=== PATIENT | male | born 1980 | race Caucasian/White ===

== ENCOUNTER 2017-07-06 22:48 | Emergency (ER) | payer MEDICAID ==
[~2017-07-06] VITALS: Ht 193 cm; Wt 110.9 kg
[2017-07-06] MEDS ORDERED: LORazepam 2 mg/ml vial IM ONE (23:45)
[2017-07-06] MEDS ORDERED: cyclobenzaprine 10mg tablet PO ONE (23:45)
[2017-07-06] MEDS ORDERED: CYCL-1 PO (23:51)
[2017-07-06] MEDS ORDERED: HYDR-565 PO (23:51)
[2017-07-07 00:15] VITALS: BP 128/82
== END 2017-07-07 00:16 | disposition home or self-care (01) ==
LOC: ER 22:49
DX: S39.012A Strain of muscle, fascia and tendon of lower back, initial encounter (principal); M62.830 Muscle spasm of back; Z88.8 Allergy status to other drugs, medicaments and biological substances; Z79.899 Other long term (current) drug therapy; X50.9XXA Other and unspecified overexertion or strenuous movements or postures, initial encounter; Y93.89 Activity, other specified; Y92.89 Other specified places as the place of occurrence of the external cause; Y99.0 Civilian activity done for income or pay
CPT/HCPCS: 72040; 72074; 72100; 96372; 99284; J2060

== ENCOUNTER 2019-11-04 01:11 | Emergency (ER) | payer MEDICAID, OTHER ==
[~2019-11-04] VITALS: Ht 188 cm; Wt 86.4 kg
[~2019-11-04 01:11] MED LIST: CYCL-1 PO
--- NOTE | 2019-11-04 02:11 | NUR ---
TOOK HIM FROM ROOM 3 TO ROOM 16. I HAD THE GREEN SCRUBS FOR HIM TO CHANGE INTO. HE WHIPPED OFF HIS PANTS AND PUT ON HIS BOTTOMS. I HAD INSTRUCTED HIM TO TAKE OFF HIS UNDERWEAR PRIOR TO HIM DOING THIS. HE REFUSED. "I DON'T HAVE TO DO NOTHING" I TOLD HIM THAT "NO, REALLY, THEY DO NEED TO COME OFF BECAUSE WE ARE HERE TO KEEP YOU SAFE FROM HARM, AND THEY HAVE ELASTIC IN THEM." HE UNDERSTOOD AND ASKED TO GO TO THE BATHROOM. I WENT INTO THE BR WITH HIM. HE DIDN'T WANT ME TOO. HE DID TAKE OFF THE UNDERWEAR BUT NOW WONT COME OUT OF THE BR. SECURITY SUMMONED.
[2019-11-04] MEDS ORDERED: LORazepam 1 MG tablet PO STA (02:37)
[2019-11-04] MEDS ORDERED: ondansetron 4mg rapidly disintigrating tab PO STA (02:37)
[2019-11-04 02:44] LABS: EOSINOPHILS # (AUTO) 0.2 X10'3 (0-0.9); EOSINOPHILS % (AUTO) 4.3 % (0-6); HEMATOCRIT 48.4 % (42.0-52.0); HEMOGLOBIN 17.1 g/dl (14.0-17.9); LYMPHOCYTES # (AUTO) 0.9 X10'3 (1.1-4.8); LYMPHOCYTES % (AUTO) 25.7 % (21-51); MEAN CORPUSCULAR HEMOGLOBIN 31.2 PG (27.0-31.0); MEAN CORPUSCULAR HGB CONC 35.3 g/dL (33.0-36.5); MEAN CORPUSCULAR VOLUME 88.3 FL (78-98); MEAN PLATELET VOLUME 8.4 FL (7.4-10.4); MONOCYTES # (AUTO) 0.4 X10'3 (0-0.9); MONOCYTES % (AUTO) 11.8 % (2-12); NEUTROPHILS # (AUTO) 2.1 X10'3 (1.8-7.7); NEUTROPHILS % (AUTO) 57.2 % (42-75); PLATELET COUNT 139 X10'3 (140-440); RED BLOOD COUNT 5.48 X10'6 (4.70-6.10); RED CELL DISTRIBUTION WIDTH 12.7 % (11.5-14.5); WHITE BLOOD COUNT 3.6 X10'3 (4.5-11.0)
[2019-11-04] MEDS ORDERED: nicotine 21mg patch - 24 hr TD STA (02:46)
--- NOTE | 2019-11-04 02:53 | NUR ---
GOT HIM ALL TUCKED IN.
[2019-11-04 03:00] LABS: ALANINE AMINOTRANSFERASE 33 U/L (12-78); ALBUMIN 4.4 G/DL (3.4-5.0); ALBUMIN/GLOBULIN RATIO 1.3 (1.1-1.5); ALKALINE PHOSPHATASE 88 IU/L (46-116); ANION GAP 4 (8-16); ASPARTATE AMINO TRANSFERASE 23 U/L (10-37); BILIRUBIN,TOTAL 0.5 MG/DL (0.1-1.0); BLOOD UREA NITROGEN 12 MG/DL (7-18); BUN/CREATININE RATIO 9.9 (5.4-32.0); CALCIUM 9.2 MG/DL (8.5-10.1); CHLORIDE 102 MMOL/L (99-107); CREATININE 1.21 MG/DL (0.60-1.10); GLUCOSE 99 MG/DL (70-104); POTASSIUM 3.9 MMOL/L (3.5-5.1); SODIUM 138 MMOL/L (135-145); TOTAL CARBON DIOXIDE 31.9 MMOL/L (24-32); TOTAL PROTEIN 7.7 G/DL (6.4-8.2); eGFR 67 ML/MIN
[2019-11-04 03:14] LABS: ACETAMINOPHEN < 2.0 UG/ML (10-30); ETHANOL < 0.010 GM/DL (0.0-0.010)
--- NOTE | 2019-11-04 03:52 | NUR ---
HE AWOKE AND WENT TO THE SINK AND DRANK SOME WATER.
--- NOTE | 2019-11-04 10:16 | NUR ---
Pt ambulatory to the restroom. Pt attempted to walk out of the room. Pt made statements about needing to go because he missed the methadone clinic today. Explained to the patient that he is not able to leave. He asked "what are you going to do if I leave? Are you going to tackle me? Am I on a hold?" Staff explained to the patient that he is on a 1798 hold and needs to be cleared from [facility]. Sandee phoned lab and asked them to run his UA as quickly as possible so we can obtain a disposition from [facility].
[2019-11-04 10:22] LABS: CLARITY,URINE CLEAR (Clear); COLOR,URINE STRAW (Yellow); GLUCOSE, URINE NEGATIVE (Neg); KETONES,URINE NEGATIVE (Neg); LEUKOCYTE ESTERASE ,URINE NEGATIVE (Neg); NITRITES, URINE NEGATIVE (Neg); OCCULT BLOOD,URINE NEGATIVE (Neg); PROTEIN,URINE NEGATIVE (Neg); UROBILINOGEN,URINE 0.2 E.U/dL (0.2-1.0)
[2019-11-04 10:29] LABS: UA COLLECTION TYPE CLN CATCH MIDSTREAM
[2019-11-04 10:34] LABS: URINE AMPHETAMINE SCREEN POSITIVE (Neg); URINE BARBITUATE SCREEN NEGATIVE (Neg); URINE BENZODIAZEPINES SCREEN NEGATIVE (Neg); URINE CANNABINOID SCREEN NEGATIVE (Neg); URINE COCAINE SCREEN NEGATIVE (Neg); URINE METHADONE SCREEN POSITIVE (Neg); URINE OPIATE SCREEN POSITIVE (Neg); URINE PHENCYCLIDINE SCREEN NEGATIVE (Neg)
[2019-11-04 11:36] VITALS: BP 134/64
== END 2019-11-04 11:51 | disposition home or self-care (01) ==
LOC: ER 01:12
DX: R44.0 Auditory hallucinations (principal); R45.851 Suicidal ideations; R11.0 Nausea; F15.90 Other stimulant use, unspecified, uncomplicated; F11.90 Opioid use, unspecified, uncomplicated; Z88.8 Allergy status to other drugs, medicaments and biological substances; Z79.899 Other long term (current) drug therapy; Z59.0 Homelessness
CPT/HCPCS: 36415; 80053; 80305; 80320; 80329; 81003; 84443; 85025; 99284

== ENCOUNTER 2019-11-23 11:02 | Emergency (ER) | payer SELFPAY ==
[~2019-11-23] VITALS: Ht 188 cm; Wt 85.0 kg
[2019-11-23 11:20] VITALS: BP 103/69
[2019-11-23] MEDS ORDERED: methadone 10mg tablet PO ONE (12:15)
[2019-11-23 12:43] LABS: BASOPHILS % (AUTO) 0.8 % (0-1); EOSINOPHILS # (AUTO) 0.1 X10'3 (0-0.9); EOSINOPHILS % (AUTO) 1.8 % (0-6); HEMATOCRIT 47.9 % (42.0-52.0); HEMOGLOBIN 16.3 g/dl (14.0-17.9); LYMPHOCYTES # (AUTO) 1.2 X10'3 (1.1-4.8); LYMPHOCYTES % (AUTO) 39.8 % (21-51); MEAN CORPUSCULAR HEMOGLOBIN 30.5 PG (27.0-31.0); MEAN CORPUSCULAR HGB CONC 34.1 g/dL (33.0-36.5); MEAN CORPUSCULAR VOLUME 89.5 FL (78-98); MEAN PLATELET VOLUME 7.8 FL (7.4-10.4); MONOCYTES # (AUTO) 0.4 X10'3 (0-0.9); MONOCYTES % (AUTO) 14.9 % (2-12); NEUTROPHILS # (AUTO) 1.3 X10'3 (1.8-7.7); NEUTROPHILS % (AUTO) 42.7 % (42-75); PLATELET COUNT 197 X10'3 (140-440); RED BLOOD COUNT 5.35 X10'6 (4.70-6.10); RED CELL DISTRIBUTION WIDTH 13.3 % (11.5-14.5)
[2019-11-23 12:53] LABS: ALANINE AMINOTRANSFERASE 24 U/L (12-78); ALBUMIN 4.2 G/DL (3.4-5.0); ALBUMIN/GLOBULIN RATIO 1.3 (1.1-1.5); ALKALINE PHOSPHATASE 85 IU/L (46-116); ANION GAP 9 (8-16); ASPARTATE AMINO TRANSFERASE 16 U/L (10-37); BLOOD UREA NITROGEN 10 MG/DL (7-18); CALCIUM 9.5 MG/DL (8.5-10.1); CHLORIDE 106 MMOL/L (99-107); CREATININE 1.25 MG/DL (0.60-1.10); GLUCOSE 91 MG/DL (70-104); SODIUM 143 MMOL/L (135-145); TOTAL CARBON DIOXIDE 28.3 MMOL/L (24-32); TOTAL PROTEIN 7.4 G/DL (6.4-8.2); eGFR 64 ML/MIN
[2019-11-23 13:12] LABS: PLATELET ESTIMATE NORMAL; TOTAL CELLS COUNTED 100
[2019-11-23 13:19] LABS: ETHANOL < 0.010 GM/DL (0.0-0.010)
[2019-11-23] MEDS ORDERED: hydrocortisone 1% cream 28gm TP SCH (13:45)
[2019-11-23] MEDS ORDERED: hydrocortisone 1% cream 28gm TP ONE (13:45)
[2019-11-23 14:39] LABS: CLARITY,URINE CLEAR (Clear); COLOR,URINE YELLOW (Yellow); GLUCOSE, URINE NEGATIVE (Neg); KETONES,URINE NEGATIVE (Neg); LEUKOCYTE ESTERASE ,URINE NEGATIVE (Neg); NITRITES, URINE NEGATIVE (Neg); OCCULT BLOOD,URINE NEGATIVE (Neg); PROTEIN,URINE NEGATIVE (Neg); UA COLLECTION TYPE CLN CATCH MIDSTREAM; UROBILINOGEN,URINE 0.2 E.U/dL (0.2-1.0)
[2019-11-23 14:40] LABS: URINE AMPHETAMINE SCREEN POSITIVE (Neg); URINE BARBITUATE SCREEN NEGATIVE (Neg); URINE BENZODIAZEPINES SCREEN POSITIVE (Neg); URINE CANNABINOID SCREEN POSITIVE (Neg); URINE COCAINE SCREEN NEGATIVE (Neg); URINE METHADONE SCREEN POSITIVE (Neg); URINE OPIATE SCREEN POSITIVE (Neg); URINE PHENCYCLIDINE SCREEN NEGATIVE (Neg)
[2019-11-23] MEDS ORDERED: GABA600T13 PO (15:05)
[2019-11-23] MEDS ORDERED: FAMO40TA73 PO (15:05)
[2019-11-23] MEDS ORDERED: METH-603 PO (15:05)
[2019-11-23] MEDS ORDERED: nicotine 7mg patch - 24hr TD ONE (15:15)
--- NOTE | 2019-11-23 15:16 | NUR ---
relieving RN for break, pt smoke 1/2 pack a day, pt asking for nicotine patch, Dr Gordon aware and gave verbal order for nicotine 7mg patch x1 now
--- NOTE | 2019-11-23 19:13 | NUR ---
pt jumped out of bed and stated "I feel better now can I go?" - advised pt that he was not able to leave and that he was on a hold. He then asked if he could talk to someone from psych. I advised him that they have been notified that he is here and that he will be seen either tonight or tomorrow morning.
--- NOTE | 2019-11-23 19:39 | NUR ---
packet being prepared and will be sent [facility]
--- NOTE | 2019-11-23 20:03 | NUR ---
relieving RN for break, pt is sleeping quietly on gurney,
--- NOTE | 2019-11-23 20:53 | NUR ---
pt is taking with mental health worker
[2019-11-23] MEDS ORDERED: QUET25TA PO (21:19)
--- NOTE | 2019-11-23 21:34 | NUR ---
pt was evaluated by mental health worker and is ready for discharge
== END 2019-11-23 21:50 ==
LOC: ER 11:02
DX: F41.9 Anxiety disorder, unspecified (principal); F32.9 Major depressive disorder, single episode, unspecified; R45.851 Suicidal ideations; F11.10 Opioid abuse, uncomplicated; F15.90 Other stimulant use, unspecified, uncomplicated; F11.90 Opioid use, unspecified, uncomplicated; Z88.8 Allergy status to other drugs, medicaments and biological substances; Z79.899 Other long term (current) drug therapy
CPT/HCPCS: 36415; 80053; 80305; 80320; 81003; 85025; 99285

== ENCOUNTER 2020-01-14 13:08 | Emergency (ER) | payer OTHER ==
[~2020-01-14] VITALS: Ht 188 cm; Wt 81.8 kg
[~2020-01-14 13:08] MED LIST changes: -CYCL-1 PO; +FAMO40TA73 PO; +GABA600T13 PO; +METH-603 PO; +QUET25TA PO
[2020-01-14 15:09] LABS: BASOPHILS % (AUTO) 0.8 % (0-1); EOSINOPHILS # (AUTO) 0.1 X10'3 (0-0.9); HEMATOCRIT 43.9 % (42.0-52.0); HEMOGLOBIN 15.3 g/dl (14.0-17.9); LYMPHOCYTES # (AUTO) 1.2 X10'3 (1.1-4.8); LYMPHOCYTES % (AUTO) 58.3 % (21-51); MEAN CORPUSCULAR HEMOGLOBIN 32.2 PG (27.0-31.0); MEAN CORPUSCULAR HGB CONC 34.8 g/dL (33.0-36.5); MEAN CORPUSCULAR VOLUME 92.4 FL (78-98); MEAN PLATELET VOLUME 8.5 FL (7.4-10.4); MONOCYTES # (AUTO) 0.4 X10'3 (0-0.9); MONOCYTES % (AUTO) 21.2 % (2-12); NEUTROPHILS # (AUTO) 0.3 X10'3 (1.8-7.7); NEUTROPHILS % (AUTO) 12.7 % (42-75); PLATELET COUNT 150 X10'3 (140-440); RED BLOOD COUNT 4.76 X10'6 (4.70-6.10); RED CELL DISTRIBUTION WIDTH 12.8 % (11.5-14.5)
[2020-01-14 15:36] LABS: PLATELET ESTIMATE NORMAL; TOTAL CELLS COUNTED 100
[2020-01-14 15:51] LABS: ALANINE AMINOTRANSFERASE 29 U/L (12-78); ALBUMIN 3.9 G/DL (3.4-5.0); ALBUMIN/GLOBULIN RATIO 1.3 (1.1-1.5); ALKALINE PHOSPHATASE 102 IU/L (46-116); ANION GAP 6 (8-16); ASPARTATE AMINO TRANSFERASE 18 U/L (10-37); BILIRUBIN,TOTAL 0.8 MG/DL (0.1-1.0); BLOOD UREA NITROGEN 10 MG/DL (7-18); BUN/CREATININE RATIO 8.5 (5.4-32.0); CALCIUM 8.6 MG/DL (8.5-10.1); CHLORIDE 102 MMOL/L (99-107); CREATININE 1.17 MG/DL (0.60-1.10); GLUCOSE 77 MG/DL (70-104); POTASSIUM 3.9 MMOL/L (3.5-5.1); SODIUM 137 MMOL/L (135-145); TOTAL CARBON DIOXIDE 29.4 MMOL/L (24-32); eGFR 69 ML/MIN
[2020-01-14 16:00] LABS: ETHANOL < 0.010 GM/DL (0.0-0.010)
[2020-01-14 17:06] LABS: CLARITY,URINE CLEAR (Clear); COLOR,URINE YELLOW (Yellow); GLUCOSE, URINE NEGATIVE (Neg); KETONES,URINE NEGATIVE (Neg); LEUKOCYTE ESTERASE ,URINE NEGATIVE (Neg); NITRITES, URINE NEGATIVE (Neg); OCCULT BLOOD,URINE NEGATIVE (Neg); PROTEIN,URINE 30 mg/dl (Neg)
[2020-01-14 17:09] LABS: RBC,URINE NONE SEEN /HPF (0-2); UA COLLECTION TYPE NON-SPECIFIED
[2020-01-14 17:10] LABS: BACTERIA,URINE NONE SEEN /HPF (Neg); MUCUS STRANDS FEW /LPF (Neg); SQUAMOUS EPITHELIAL CELL,UR FEW /LPF (FEW); WBC,URINE 0-4 /HPF (0-4)
[2020-01-14 17:14] LABS: URINE AMPHETAMINE SCREEN POSITIVE (Neg); URINE BARBITUATE SCREEN NEGATIVE (Neg); URINE BENZODIAZEPINES SCREEN NEGATIVE (Neg); URINE CANNABINOID SCREEN POSITIVE (Neg); URINE COCAINE SCREEN NEGATIVE (Neg); URINE METHADONE SCREEN POSITIVE (Neg); URINE OPIATE SCREEN POSITIVE (Neg); URINE PHENCYCLIDINE SCREEN NEGATIVE (Neg)
--- NOTE | 2020-01-14 17:20 | NUR ---
PACKET FAXED [facility]
--- NOTE | 2020-01-14 22:25 | NUR ---
Pt has been sleeping since shift change. Pt uncooperative when awakened VS stable, resp even no medications ordered pt allowed to sleep.
--- NOTE | 2020-01-14 23:50 | NUR ---
Pt continues to sleep, resp even and unlabored, repositions self.
--- NOTE | 2020-01-15 03:20 | NUR ---
Pt sleeping resp even and unlabored
--- NOTE | 2020-01-15 07:00 | NUR ---
Patient is lying on his right side in no apparent distress. Patient RR is 16 and skin is pink, warm and dry. Patient is resting with eyes closed.
--- NOTE | 2020-01-15 09:00 | NUR ---
Patient is restuing on back side, regular breathing observed, will continue to monitor.
--- NOTE | 2020-01-15 09:07 | NUR ---
Breaking primary RN, pt is awake and cooperative with staff, calm, will continue to monitor
[2020-01-15] MEDS: famotidine 10mg tablet PO SCH (09:16)
[2020-01-15] MEDS: gabapentin 300mg capsule PO SCH ×2 (10:05→16:36)
[2020-01-15] MEDS: methadone 10mg tablet PO SCH (10:06)
--- NOTE | 2020-01-15 10:37 | NUR ---
Breaking primary RN, pt is in bed, supine, regular breathing observed, no s/s of agitation observed
--- NOTE | 2020-01-15 13:00 | NUR ---
Patient reports to TIMOTHY Mendoza that he is "feeling agitated" and is hearing voices that are not present. Patient request Seroquel, telephone order obtained by ELIZABETH Morrissey.
[2020-01-15] MEDS ORDERED: QUEtiapine 25mg tablet PO ONE (13:05)
--- NOTE | 2020-01-15 13:10 | NUR ---
TIMOTHY Mendoza spoke with patient who states "I am not actually on Seroquel, I took myself off 3 years ago." Patient endorses that he hears voices, and that is why is here to get "help and get back on Seroquel."
[2020-01-15] MEDS ORDERED: nicotine 14mg patch - 24hr TD ONE (13:30)
[2020-01-15] MEDS ORDERED: LORazepam 1 MG tablet PO ONE (13:30)
--- NOTE | 2020-01-15 13:35 | NUR ---
Break RN; Pt pacing but cooperative. Pt medicated with 1mg Ativan and 14mg Nicotine Patch on left shoulder.
--- NOTE | 2020-01-15 15:00 | NUR ---
Patient resting in bed, lying on right side. RR is 14, patient does not appear to be in distress.
--- NOTE | 2020-01-15 17:00 | NUR ---
Patient resting in bed, lying on right side. RR is 12, patient does not appear to be in distress.
--- NOTE | 2020-01-15 18:25 | NUR ---
SBAR report given to Tianna Arias RN. All questions answered.
[2020-01-15] MEDS: hydrOXYzine 25 MG tablet PO PRN (18:59)
[2020-01-16] MEDS ORDERED: LORazepam 1 MG tablet PO ONE ×2 (00:20→20:00)
[2020-01-16] MEDS: gabapentin 300mg capsule PO SCH ×3 (00:51→16:33)
--- NOTE | 2020-01-16 01:17 | NUR ---
Pt awake at this time, used the restroom and returned to bed. Given new blankets. He asked about getting admitted to a psych facility, education on process and to expect to hear from the county worker in the day time.
--- NOTE | 2020-01-16 06:33 | NUR ---
pt is pacing around the unit
[2020-01-16] MEDS: methadone 10mg tablet PO SCH (07:13)
[2020-01-16] MEDS: famotidine 10mg tablet PO SCH (07:14)
[2020-01-16] MEDS: quetiapine 100mg tablet PO SCH ×2 (07:14→20:07)
--- NOTE | 2020-01-16 07:30 | NUR ---
PT IS PACING AROUND
--- NOTE | 2020-01-16 08:30 | NUR ---
PT IS PACING AROUND AND THEN SAT DOWN TO EAT BREAKFAST
--- NOTE | 2020-01-16 09:30 | NUR ---
PT IS RESTING
--- NOTE | 2020-01-16 10:30 | NUR ---
PT IS SLEEPING. NO CONCERNS AT THIS TIME
--- NOTE | 2020-01-16 11:30 | NUR ---
PT IS SLEEPING. NO CONCERNS AT THIS TIME
--- NOTE | 2020-01-16 12:30 | NUR ---
PT IS SLEEPING. NO CONCERNS AT THIS TIME
--- NOTE | 2020-01-16 13:30 | NUR ---
PT IS SLEEPING. NO CONCERNS AT THIS TIME
--- NOTE | 2020-01-16 14:30 | NUR ---
PT IS SLEEPING. NO CONCERNS AT THIS TIME
[2020-01-16] MEDS ORDERED: TESTOSTERONE CYPIONATE 200 MG/ML VIAL IM SCH (15:30)
--- NOTE | 2020-01-16 15:46 | NUR ---
PT IS AWAKE. TALKING ON THE PHONE
--- NOTE | 2020-01-16 16:00 | NUR ---
PT IS RESTING
[2020-01-16] MEDS: hydrOXYzine 25 MG tablet PO PRN (16:34)
--- NOTE | 2020-01-16 17:00 | NUR ---
PT IS RESTING
--- NOTE | 2020-01-16 18:18 | NUR ---
PT IS RESTING
--- NOTE | 2020-01-16 18:42 | NUR ---
PT IS CALM AND ON HIS BED SITTING CROSS LEGGED. HE IS CALM. RECEIVED REPORT FROM DAY SHIFTR RNPARAS. SHE REPORTS HE CAN BE DEMANDING AND IRRITABLE. 5150 WRITTEN BY [facility]. PT AWAITING PLACEMENT. PT UP TO NURSES STATION TO REQUEST ADTL FOOD AND A PHONE. GIVEN SOME SNACKS. CURRENTLY TALKING CALMLY WITH SOMEONE ON THE PHONE.
--- NOTE | 2020-01-16 19:19 | NUR ---
PT STILL ON THE PHONE AND IS QUITE AND SEEMS APPROPRIATE IN HIS CONVERSATION . HE REQUESTS HER TO VISIT AND IS UPDATED ON POLICIES, THEN ASKED IF SHE CAN BRING HIS PHONE, AND AGAIN, UPDATED ON OUR STRICT POLICIES. PT WAS CALM WHEN RECEIVING THIS INFORMATION AND RELAYED IT TO THE WOMAN ON THE PHONE.
--- NOTE | 2020-01-16 19:56 | NUR ---
PT [facility] AND THAT HE HAS TAKEN 2 DOSES OF THE ATARAX, PRN, AND IT "DOES NOT HELP AT ALL...I TRIED IT BEACUSE YOU GUYS WANTED ME TO, BUT IT HAS NOT HELPED IN THE PAST". aLSO IN NEED OF ANOTHER NICOTINE PATCH. ELIZABETH BURT UPDATED AND VERBAL RECEIVED FR ATIVAN AND NICOTINE PATCH.
[2020-01-16] MEDS ORDERED: nicotine 21mg patch - 24 hr TD ONE (20:00)
--- NOTE | 2020-01-16 20:28 | NUR ---
PT GIVEN ATIVAN AND SEROQUEL AND NEW NICOTINE PATCH. PT IS COOPERATIVE. EXPLAINED THE PROCESS OF MENTAL HEALTH HOLD AND THAT WE ARE WAITING FOR ACCEPTANCE FOR HIM TO INPT PSYCH. STATES ONCE BEFORE HE WAS IN A "BAD PLACE LIKE THIS" AND DID INIPT PSYCH "[facility]...IT WAS A REALLY BEAUTIFUL PLACE AND IT HELPED ALOT". STATES HE DID ATTEMPT TO KILL HIMSELF 4 DAYS AGO BY INJECTING HEROIN WITH THE INTENT OF KILLING HIMSELF. STATES "I KNOW IM JOKING AROUND RIGHT NOW WITH YOU, IT HELPS ME COPE, BUT LAURA NEVER BEEN THIS BAD...I DONT KNOW WHAT TO DO OR HOW TO EXPLAIN THIS". STATES THAT HE WAS TALKING TO HIS GIRLFRIEND EARLIER ON THE PHONE AND THAT SHE IS SUPPORTIVE. HE IS HOPEFUL OF AN UPDATED ON STATUS FROM [facility] SOON. I REPORTED THAT I WILL LEAVE THEM A NOTE ON THEIR DOOR TO REQUEST THIS. PT IS POLITE AND GRATEFUL FOR HIS CARE. MOVED TO BED 25 (THE LIGHTS IN BED 25 ARE BRIGHT).
--- NOTE | 2020-01-16 20:42 | NUR ---
pt reports he has chronic join pain from rhumatoid arthritis, states he is "always in pain" this is why he takes gabapentin and methadone. states he has never used iv drugs or heroin until his attempt to kill himself a few days ago.
--- NOTE | 2020-01-16 23:24 | NUR ---
PT REMAINS ASLEEP. RR 12 AND UNLABORED. BLANKETS COVERING TO HIS SHOUDERS AND LYING ON HIS BACK. SITTER AND RN WITHIN VIEW OF PT AAT.
--- NOTE | 2020-01-17 00:27 | NUR ---
PT REMAINS ASLEEP, LYING ON HIS BACK.
--- NOTE | 2020-01-17 01:16 | NUR ---
BREAKING PRIMARY RN, PT ASLEEP, RR EVEN AND UNLABORED, WILL CONTINUE TO MONITOR
--- NOTE | 2020-01-17 02:11 | NUR ---
PT REMAINS ASLEEP, LYING ON HIS BACK WITH BLANKETS COVERING TO HIS WAIST. RR 14 AND UNLABORED. SITTER AND RN WITHIN VIEW OF PT AAT.
--- NOTE | 2020-01-17 04:19 | NUR ---
PT UP TO BR TO VOID. AMBULATING WITH STEADY GAIT. REQUESTED CRANBERRY JUICE AND RETURNED TO HIS BED. GIVEN JUICE.
--- NOTE | 2020-01-17 06:35 | NUR ---
Received report from Fay AGUIRRE, [facility].
--- NOTE | 2020-01-17 07:45 | NUR ---
Patient resting with eyes closed, will continue to monitor.
[2020-01-17] MEDS: quetiapine 100mg tablet PO SCH ×3 (08:00→19:20)
[2020-01-17] MEDS: famotidine 10mg tablet PO SCH (08:20)
[2020-01-17] MEDS: gabapentin 300mg capsule PO SCH ×3 (08:21→17:42)
[2020-01-17] MEDS: methadone 10mg tablet PO SCH (08:25)
--- NOTE | 2020-01-17 08:30 | NUR ---
Took AM meds well, held seroquel r/t patient needing to be awake/alert to make phone calls, denies hallucinations at this time. Discussed why he's here and offered hope to his situation.
[2020-01-17] MEDS ORDERED: LORazepam 1 MG tablet PO ONE (09:10)
[2020-01-17] MEDS ORDERED: bisacodyl 5mg tablet.DR PO ONE (09:10)
--- NOTE | 2020-01-17 09:23 | NUR ---
Spoke to MD poole: patient's statement of not having had BM in last 6 days and patient having anxiety, received orders for Ativan and Bisacodyl. Administered them at this time. Patient on the phone trying to figure out his affairs with work etc. Patient states he's not hearing voices at this time. Patient refused Seroquel this am r/t needing to be awake for phone calls to be made and the seroquel makes him sleep. Held Seroquel, discussed with patient that if he begins to hallucinate again that we will give the seroquel.
--- NOTE | 2020-01-17 11:39 | NUR ---
Received call for nurse to nurse from Jessy from [facility], requested a 5150 to be renewed.
[2020-01-17] MEDS ORDERED: nicotine 21mg patch - 24 hr TD SCH (12:35)
--- NOTE | 2020-01-17 14:16 | NUR ---
pt appear sleeping at this time .no distress noted will cont to monitor rr tammie and unlabored,primary nurse on break.
--- NOTE | 2020-01-17 15:08 | NUR ---
Patient sleeping still, no s/sx of distress noted. Will cont. to monitor.
--- NOTE | 2020-01-17 16:00 | NUR ---
Patient in deep sleep, noted rise and fall of chest, no s/sx of distress. Will cont. to monitor.
--- NOTE | 2020-01-17 17:39 | NUR ---
Patient remains asleep, will wake up to give 1600 medication.
[2020-01-17 17:46] VITALS: BP 111/59
--- NOTE | 2020-01-17 19:00 | NUR ---
pt getting ready to leave to [facility]
--- NOTE | 2020-01-17 19:14 | NUR ---
received a bottle of pt's methadone (1/2 full of liquid). Will send with patient for transfer
== END 2020-01-17 20:34 ==
LOC: ER 13:09
DX: F32.9 Major depressive disorder, single episode, unspecified (principal); R45.851 Suicidal ideations; R44.0 Auditory hallucinations; D72.819 Decreased white blood cell count, unspecified; F15.90 Other stimulant use, unspecified, uncomplicated; F11.90 Opioid use, unspecified, uncomplicated; Z88.1 Allergy status to other antibiotic agents; Z79.899 Other long term (current) drug therapy
CPT/HCPCS: 36415; 80053; 80305; 80320; 81001; 84443; 85025; 96372; 99285; Q0177

== ENCOUNTER 2020-02-04 23:20 | Emergency (ER) | payer OTHER ==
[~2020-02-04] VITALS: Ht 188 cm; Wt 90.9 kg
[~2020-02-04 23:20] MED LIST changes: -QUET25TA PO
[2020-02-04] MEDS ORDERED: normal saline 1000ML IV soln IVB ONE ×2 (23:55)
[2020-02-04] MEDS ORDERED: ondansetron/PF 4mg/2ml inj IV ONE (23:55)
[2020-02-04] MEDS ORDERED: iohexol 300mg/ml 100ml inj. ONE (23:59)
[2020-02-05] MEDS: morphine 4 MG/ML inj SYRINge IV PRN ×2 (00:05→00:50)
[2020-02-05 00:23] LABS: LYMPHOCYTES # (AUTO) 1.3 X10'3 (1.1-4.8); MONOCYTES # (AUTO) 0.7 X10'3 (0-0.9); NEUTROPHILS # (AUTO) 4.7 X10'3 (1.8-7.7); RED CELL DISTRIBUTION WIDTH 13.1 % (11.5-14.5); WHITE BLOOD COUNT 6.8 X10'3 (4.5-11.0)
[2020-02-05 00:25] LABS: BASOPHILS % (AUTO) 0.5 % (0-1); EOSINOPHILS % (AUTO) 0.3 % (0-6); HEMATOCRIT 45.1 % (42.0-52.0); HEMOGLOBIN 15.7 g/dl (14.0-17.9); LYMPHOCYTES % (AUTO) 19.7 % (21-51); MEAN CORPUSCULAR HGB CONC 34.8 g/dL (33.0-36.5); MEAN PLATELET VOLUME 7.7 FL (7.4-10.4); MONOCYTES % (AUTO) 10.5 % (2-12); PLATELET COUNT 232 X10'3 (140-440)
[2020-02-05 00:34] LABS: PARTIAL THROMBOPLASTIN TIME 28 SECONDS (22-32)
[2020-02-05 00:37] LABS: ALANINE AMINOTRANSFERASE 103 U/L (12-78); ALBUMIN 4.6 G/DL (3.4-5.0); ALBUMIN/GLOBULIN RATIO 1.2 (1.1-1.5); ALKALINE PHOSPHATASE 94 IU/L (46-116); ANION GAP 12 (8-16); ASPARTATE AMINO TRANSFERASE 35 U/L (10-37); BILIRUBIN,TOTAL 1.3 MG/DL (0.1-1.0); BLOOD UREA NITROGEN 25 MG/DL (7-18); BUN/CREATININE RATIO 16.8 (5.4-32.0); CALCIUM 9.3 MG/DL (8.5-10.1); CHLORIDE 99 MMOL/L (99-107); CREATININE 1.49 MG/DL (0.60-1.10); ETHANOL < 0.010 GM/DL (0.0-0.010); GLUCOSE 106 MG/DL (70-104); POTASSIUM 3.7 MMOL/L (3.5-5.1); SODIUM 136 MMOL/L (135-145); TOTAL CARBON DIOXIDE 24.6 MMOL/L (24-32); TOTAL PROTEIN 8.4 G/DL (6.4-8.2); eGFR 53 ML/MIN
[2020-02-05 00:52] VITALS: BP 127/75
== END 2020-02-05 01:08 | disposition home or self-care (01) ==
LOC: ER 23:21
DX: S20.211A Contusion of right front wall of thorax, initial encounter (principal); F17.200 Nicotine dependence, unspecified, uncomplicated; F15.90 Other stimulant use, unspecified, uncomplicated; F11.90 Opioid use, unspecified, uncomplicated; F32.9 Major depressive disorder, single episode, unspecified; W19.XXXA Unspecified fall, initial encounter; Y93.89 Activity, other specified; Y92.89 Other specified places as the place of occurrence of the external cause; Y99.8 Other external cause status
CPT/HCPCS: 36415; 70450; 71260; 72125; 74177; 80053; 80320; 85025; 85610; 85730; 96361; 96374; 96376; 99285; J2270; J7030; Q9967

== ENCOUNTER 2020-03-22 19:33 | Emergency (ER) | payer OTHER ==
[~2020-03-22] VITALS: Ht 188 cm; Wt 96.8 kg
[2020-03-22] MEDS ORDERED: LORazepam 1 MG tablet PO ONE (22:25)
[2020-03-22 22:33] LABS: CLARITY,URINE CLEAR (Clear); COLOR,URINE YELLOW (Yellow); GLUCOSE, URINE NEGATIVE (Neg); KETONES,URINE NEGATIVE (Neg); LEUKOCYTE ESTERASE ,URINE NEGATIVE (Neg); NITRITES, URINE NEGATIVE (Neg); OCCULT BLOOD,URINE NEGATIVE (Neg); PROTEIN,URINE NEGATIVE (Neg)
[2020-03-22 22:35] LABS: UA COLLECTION TYPE CLN CATCH MIDSTREAM
[2020-03-22 22:48] LABS: URINE AMPHETAMINE SCREEN NEGATIVE (Neg); URINE BARBITUATE SCREEN NEGATIVE (Neg); URINE BENZODIAZEPINES SCREEN NEGATIVE (Neg); URINE CANNABINOID SCREEN POSITIVE (Neg); URINE COCAINE SCREEN NEGATIVE (Neg); URINE METHADONE SCREEN NEGATIVE (Neg); URINE OPIATE SCREEN POSITIVE (Neg); URINE PHENCYCLIDINE SCREEN NEGATIVE (Neg)
[2020-03-22 22:54] LABS: ALANINE AMINOTRANSFERASE 25 U/L (12-78); ALBUMIN 4.1 G/DL (3.4-5.0); ALBUMIN/GLOBULIN RATIO 1.3 (1.1-1.5); ALKALINE PHOSPHATASE 103 IU/L (46-116); ANION GAP 5 (8-16); ASPARTATE AMINO TRANSFERASE 20 U/L (10-37); BILIRUBIN,TOTAL 0.4 MG/DL (0.1-1.0); BLOOD UREA NITROGEN 17 MG/DL (7-18); BUN/CREATININE RATIO 14.3 (5.4-32.0); CHLORIDE 103 MMOL/L (99-107); CREATININE 1.19 MG/DL (0.60-1.10); GLUCOSE 87 MG/DL (70-104); POTASSIUM 4.6 MMOL/L (3.5-5.1); SODIUM 139 MMOL/L (135-145); TOTAL CARBON DIOXIDE 30.6 MMOL/L (24-32); TOTAL PROTEIN 7.3 G/DL (6.4-8.2); eGFR 68 ML/MIN
[2020-03-22 23:00] LABS: ETHANOL < 0.010 GM/DL (0.0-0.010)
[2020-03-22 23:10] LABS: BASOPHILS % (AUTO) 0.7 % (0-1); EOSINOPHILS # (AUTO) 0.3 X10'3 (0-0.9); EOSINOPHILS % (AUTO) 10.8 % (0-6); HEMATOCRIT 43.3 % (42.0-52.0); LYMPHOCYTES # (AUTO) 1.7 X10'3 (1.1-4.8); LYMPHOCYTES % (AUTO) 56.7 % (21-51); MEAN CORPUSCULAR HEMOGLOBIN 31.3 PG (27.0-31.0); MEAN CORPUSCULAR HGB CONC 34.6 g/dL (33.0-36.5); MEAN CORPUSCULAR VOLUME 90.7 FL (78-98); MEAN PLATELET VOLUME 8.6 FL (7.4-10.4); MONOCYTES # (AUTO) 0.7 X10'3 (0-0.9); MONOCYTES % (AUTO) 22.3 % (2-12); NEUTROPHILS # (AUTO) 0.3 X10'3 (1.8-7.7); NEUTROPHILS % (AUTO) 9.5 % (42-75); PLATELET COUNT 173 X10'3 (140-440); RED BLOOD COUNT 4.77 X10'6 (4.70-6.10); RED CELL DISTRIBUTION WIDTH 12.8 % (11.5-14.5); WHITE BLOOD COUNT 2.9 X10'3 (4.5-11.0)
[2020-03-22] MEDS ORDERED: ONDA-103 PO (23:53)
[2020-03-22] MEDS ORDERED: ESCI10TA61 PO (23:53)
[2020-03-22] MEDS ORDERED: QUET-1 PO (23:53)
[2020-03-23] MEDS ORDERED: ibuprofen tablet 400 MG TABLET PO ONE
--- NOTE | 2020-03-23 00:12 | NUR ---
Patient ambulated over from main ER to ER Overflow bed 21 with RN. Patient alert and oriented and appears to be cooperative. No apparent s/s of distress noted. Patient requesting a dose of his night medications - will ask provider for dose of Seroquel.
--- NOTE | 2020-03-23 00:25 | NUR ---
Packet faxed to [facility]
--- NOTE | 2020-03-23 01:01 | NUR ---
Patient now appears to be resting comfortably in bed. No apparent s/s of distress noted. Awaiting MD to address pt's medication reconciliation.
[2020-03-23 01:55] LABS: PLATELET ESTIMATE NORMAL; TOTAL CELLS COUNTED 100
--- NOTE | 2020-03-23 02:30 | NUR ---
Patient appears to be resting comfortably in bed. No apparent s/s of distress noted
--- NOTE | 2020-03-23 03:12 | NUR ---
Patient appears to be resting comfortably in bed. No apparent s/s of distress noted
[2020-03-23] MEDS ORDERED: LORazepam 1 MG tablet PO ONE (03:20)
--- NOTE | 2020-03-23 03:23 | NUR ---
Patient woke up and asked nurse if he could get any medication to help him calm down. Patient stated he Ativan earlier and it helped. Spoke with provider and received another one time dose of PO Ativan
--- NOTE | 2020-03-23 04:10 | NUR ---
Patient appears to be resting comfortably in bed. No apparent s/s of distress noted
--- NOTE | 2020-03-23 05:05 | NUR ---
Patient appears to be resting comfortably in bed. No apparent s/s of distress noted
[2020-03-23 05:40] VITALS: BP 111/69
--- NOTE | 2020-03-23 06:02 | NUR ---
Patient appears to be resting comfortably in bed. No apparent s/s of distress noted
--- NOTE | 2020-03-23 06:41 | NUR ---
PT SLEEPING IN POC WITHOUT DISTRESS.
[2020-03-23] MEDS ORDERED: LORazepam 1 MG tablet PO PRN (07:15)
--- NOTE | 2020-03-23 08:34 | NUR ---
PT AWAKE AND EATING BREAKFAST NOW.
--- NOTE | 2020-03-23 08:58 | NUR ---
PT REQUESTING SUBOXONE AND ATIVAN. [facility] AT BEDSIDE. ATIVAN GIVEN SCHEDULED. ADVISED PT REQUESTING SUBOXONE. NO NEW O[facility]ER AT THIS TIME FOR SUBOXONE. PT UPDATED.
--- NOTE | 2020-03-23 09:14 | NUR ---
MARAH TAYLOR, ENGAGED IN PSYCYOSOCIAL ASSESSMENT W/ PT
== END 2020-03-23 10:10 | disposition home or self-care (01) ==
LOC: ER 19:34
DX: R45.851 Suicidal ideations (principal); F32.9 Major depressive disorder, single episode, unspecified; F17.200 Nicotine dependence, unspecified, uncomplicated; F15.90 Other stimulant use, unspecified, uncomplicated; F11.90 Opioid use, unspecified, uncomplicated; Z72.89 Other problems related to lifestyle; Z88.1 Allergy status to other antibiotic agents; Z79.899 Other long term (current) drug therapy
CPT/HCPCS: 36415; 80053; 80305; 80320; 81003; 85007; 85025; 99284

== ENCOUNTER 2020-04-01 00:24 | Emergency (ER) | payer OTHER ==
[~2020-04-01] VITALS: Ht 188 cm; Wt 92.4 kg
[~2020-04-01 00:24] MED LIST changes: +ESCI10TA61 PO; -FAMO40TA73 PO; -METH-603 PO; +ONDA-103 PO; +QUET-1 PO
--- NOTE | 2020-04-01 00:50 | NUR ---
Patient brought back to overflow from triage. Patient is well oriented. Patient complains of extreme depression and anxiety. Panic attacks for a few days. S/I, "I don't want to bash my head into the wall." Patient is scheduled to see Dr. Govea on April 23. Hx: Anxiety disorder, previous drug addiction, heroin use. Patient currently uses Suboxone and Seroquel. Patient states he has been taking Seroquel for two weeks and it makes him have bad thoughts, "like I should kill myself.
[2020-04-01] MEDS ORDERED: nicotine 21mg patch - 24 hr TD ONE (01:15)
[2020-04-01] MEDS ORDERED: ondansetron 4mg rapidly disintigrating tab PO ONE (01:15)
[2020-04-01] MEDS ORDERED: NICOTINE POLACRILEX 2 MG LOZENGE BC PRN (01:35)
[2020-04-01 01:36] LABS: CLARITY,URINE CLEAR (Clear); COLOR,URINE YELLOW (Yellow); GLUCOSE, URINE NEGATIVE (Neg); KETONES,URINE NEGATIVE (Neg); LEUKOCYTE ESTERASE ,URINE NEGATIVE (Neg); NITRITES, URINE NEGATIVE (Neg); OCCULT BLOOD,URINE NEGATIVE (Neg); PH,URINE 7.5 (4.8-8.0); PROTEIN,URINE NEGATIVE (Neg)
[2020-04-01 01:37] LABS: UA COLLECTION TYPE CLN CATCH MIDSTREAM
[2020-04-01 01:40] LABS: BASOPHILS % (AUTO) 0.8 % (0-1); EOSINOPHILS # (AUTO) 0.1 X10'3 (0-0.9); EOSINOPHILS % (AUTO) 4.8 % (0-6); HEMATOCRIT 47.7 % (42.0-52.0); HEMOGLOBIN 16.8 g/dl (14.0-17.9); LYMPHOCYTES # (AUTO) 1.4 X10'3 (1.1-4.8); LYMPHOCYTES % (AUTO) 51.3 % (21-51); MEAN CORPUSCULAR HEMOGLOBIN 31.6 PG (27.0-31.0); MEAN CORPUSCULAR HGB CONC 35.2 g/dL (33.0-36.5); MEAN CORPUSCULAR VOLUME 89.9 FL (78-98); MEAN PLATELET VOLUME 8.1 FL (7.4-10.4); MONOCYTES # (AUTO) 0.4 X10'3 (0-0.9); MONOCYTES % (AUTO) 15.2 % (2-12); NEUTROPHILS # (AUTO) 0.7 X10'3 (1.8-7.7); NEUTROPHILS % (AUTO) 27.9 % (42-75); PLATELET COUNT 200 X10'3 (140-440); RED BLOOD COUNT 5.31 X10'6 (4.70-6.10); RED CELL DISTRIBUTION WIDTH 12.9 % (11.5-14.5); WHITE BLOOD COUNT 2.7 X10'3 (4.5-11.0)
[2020-04-01] MEDS: LORazepam 1 MG tablet PO PRN ×3 (01:46→11:20)
[2020-04-01 01:52] LABS: ALANINE AMINOTRANSFERASE 20 U/L (12-78); ALBUMIN 4.6 G/DL (3.4-5.0); ALBUMIN/GLOBULIN RATIO 1.3 (1.1-1.5); ALKALINE PHOSPHATASE 107 IU/L (46-116); ANION GAP 11 (8-16); ASPARTATE AMINO TRANSFERASE 19 U/L (10-37); BILIRUBIN,TOTAL 0.5 MG/DL (0.1-1.0); BLOOD UREA NITROGEN 9 MG/DL (7-18); CALCIUM 9.5 MG/DL (8.5-10.1); CHLORIDE 100 MMOL/L (99-107); CREATININE 1.28 MG/DL (0.60-1.10); GLUCOSE 103 MG/DL (70-104); POTASSIUM 3.8 MMOL/L (3.5-5.1); SODIUM 136 MMOL/L (135-145); TOTAL CARBON DIOXIDE 25.1 MMOL/L (24-32); TOTAL PROTEIN 8.2 G/DL (6.4-8.2); URINE AMPHETAMINE SCREEN NEGATIVE (Neg); URINE BARBITUATE SCREEN NEGATIVE (Neg); URINE BENZODIAZEPINES SCREEN NEGATIVE (Neg); URINE CANNABINOID SCREEN POSITIVE (Neg); URINE COCAINE SCREEN NEGATIVE (Neg); URINE METHADONE SCREEN NEGATIVE (Neg); URINE OPIATE SCREEN NEGATIVE (Neg); URINE PHENCYCLIDINE SCREEN NEGATIVE (Neg); eGFR 63 ML/MIN
[2020-04-01 01:53] LABS: ETHANOL < 0.010 GM/DL (0.0-0.010)
--- NOTE | 2020-04-01 01:59 | NUR ---
Patigladyst has been seen by Dr. Izaguirre. Nausea is present along with anxiety and nicotine craving. Nicotine lozenge, PO Zofran, and Ativan 1 mg PO have been administered. Patient is linear and cooperative with staff.
[2020-04-01] MEDS ORDERED: IBUP-1984 PO (02:33)
[2020-04-01] MEDS ORDERED: BUPR1FIL3 SL (02:45)
[2020-04-01 03:07] LABS: PLATELET ESTIMATE NORMAL; TOTAL CELLS COUNTED 100
--- NOTE | 2020-04-01 03:16 | NUR ---
PATIENT'S PACKET WAS SENT TO [facility].
--- NOTE | 2020-04-01 03:49 | NUR ---
Patient sleeping quietly on her left side. No distress. Addendum: 04/01/20 at 0350 by KYREE His left side.
[2020-04-01] MEDS ORDERED: ondansetron 4mg rapidly disintigrating tab PO PRN (04:00)
--- NOTE | 2020-04-01 04:28 | NUR ---
Dr. Nunes will request day shift ER MD to request a psych consult as he cannot write for patients suboxone Rx. Secondary alternative is for patient to have friend or family bring in his home suboxone
--- NOTE | 2020-04-01 06:00 | NUR ---
Patient sleeping quietly, low fowlers position.
--- NOTE | 2020-04-01 06:43 | NUR ---
Requesting ibuprofen, states he has toothache and had dentist appt tomorrow to have 4 teeth pulled.
[2020-04-01] MEDS ORDERED: buprenorphine/naloxone 8MG-2MG SUBlingual film SL SCH (08:00)
[2020-04-01] MEDS ORDERED: ibuprofen tablet 400 MG TABLET PO SCH (08:00)
[2020-04-01] MEDS ORDERED: gabapentin 300mg capsule PO SCH (08:00)
--- NOTE | 2020-04-01 10:14 | NUR ---
[facility]
[2020-04-01 14:28] VITALS: BP 117/61
[2020-04-01] MEDS ORDERED: quetiapine 100mg tablet PO SCH (21:00)
== END 2020-04-01 12:45 | disposition home or self-care (01) ==
LOC: ER 00:24
DX: R45.851 Suicidal ideations (principal); F41.9 Anxiety disorder, unspecified; F11.90 Opioid use, unspecified, uncomplicated; N28.9 Disorder of kidney and ureter, unspecified; F32.9 Major depressive disorder, single episode, unspecified; F17.200 Nicotine dependence, unspecified, uncomplicated; F15.90 Other stimulant use, unspecified, uncomplicated; Z88.1 Allergy status to other antibiotic agents; Z79.899 Other long term (current) drug therapy
CPT/HCPCS: 36415; 80053; 80305; 80320; 81003; 85007; 85025; 99284

== ENCOUNTER 2020-04-05 15:00 | Emergency (ER) | payer OTHER ==
[~2020-04-05] VITALS: Ht 188 cm; Wt 88.6 kg
[~2020-04-05 15:00] MED LIST changes: +BUPR1FIL3 SL; -ESCI10TA61 PO; +IBUP-1984 PO
[2020-04-05 15:35] LABS: BASOPHILS % (AUTO) 0.7 % (0-1); EOSINOPHILS # (AUTO) 0.1 X10'3 (0-0.9); EOSINOPHILS % (AUTO) 3.2 % (0-6); HEMATOCRIT 47.6 % (42.0-52.0); HEMOGLOBIN 16.3 g/dl (14.0-17.9); LYMPHOCYTES # (AUTO) 1.1 X10'3 (1.1-4.8); LYMPHOCYTES % (AUTO) 49.1 % (21-51); MEAN CORPUSCULAR HEMOGLOBIN 30.9 PG (27.0-31.0); MEAN CORPUSCULAR HGB CONC 34.2 g/dL (33.0-36.5); MEAN CORPUSCULAR VOLUME 90.5 FL (78-98); MONOCYTES # (AUTO) 0.4 X10'3 (0-0.9); MONOCYTES % (AUTO) 17.8 % (2-12); NEUTROPHILS # (AUTO) 0.7 X10'3 (1.8-7.7); NEUTROPHILS % (AUTO) 29.2 % (42-75); PLATELET COUNT 201 X10'3 (140-440); RED BLOOD COUNT 5.26 X10'6 (4.70-6.10); RED CELL DISTRIBUTION WIDTH 12.9 % (11.5-14.5); WHITE BLOOD COUNT 2.3 X10'3 (4.5-11.0)
[2020-04-05 15:40] LABS: URINE AMPHETAMINE SCREEN NEGATIVE (Neg); URINE BARBITUATE SCREEN NEGATIVE (Neg); URINE BENZODIAZEPINES SCREEN NEGATIVE (Neg); URINE CANNABINOID SCREEN POSITIVE (Neg); URINE COCAINE SCREEN NEGATIVE (Neg); URINE METHADONE SCREEN NEGATIVE (Neg); URINE OPIATE SCREEN NEGATIVE (Neg); URINE PHENCYCLIDINE SCREEN NEGATIVE (Neg)
[2020-04-05 15:50] LABS: ALANINE AMINOTRANSFERASE 19 U/L (12-78); ALBUMIN 4.8 G/DL (3.4-5.0); ALBUMIN/GLOBULIN RATIO 1.3 (1.1-1.5); ALKALINE PHOSPHATASE 113 IU/L (46-116); ANION GAP 6 (8-16); ASPARTATE AMINO TRANSFERASE 14 U/L (10-37); BILIRUBIN,TOTAL 0.6 MG/DL (0.1-1.0); BLOOD UREA NITROGEN 16 MG/DL (7-18); BUN/CREATININE RATIO 12.9 (5.4-32.0); CALCIUM 9.4 MG/DL (8.5-10.1); CHLORIDE 102 MMOL/L (99-107); CREATININE 1.24 MG/DL (0.60-1.10); GLUCOSE 84 MG/DL (70-104); POTASSIUM 4.3 MMOL/L (3.5-5.1); SODIUM 137 MMOL/L (135-145); TOTAL CARBON DIOXIDE 28.6 MMOL/L (24-32); TOTAL PROTEIN 8.5 G/DL (6.4-8.2); eGFR 65 ML/MIN
[2020-04-05] MEDS ORDERED: LORazepam 1 MG tablet PO ONE (15:50)
[2020-04-05 15:55] LABS: ETHANOL < 0.010 GM/DL (0.0-0.010)
[2020-04-05 15:58] LABS: PLATELET ESTIMATE NORMAL; TOTAL CELLS COUNTED 100
--- NOTE | 2020-04-05 16:35 | NUR ---
PT BROUGHT IN BY [facility] FOR SI THOUGHTS. PT STATES THAT HE HAS BEEN HAVING INCREASED SI THOUGHT FOR THE PAST MTH. PT STATES HAS NOT ACTED ON THE THOUGHTS, HAS NOT DEFINITIVE PLAN BUT WILL "DO IT BY ANY MEANS POSSIBLE", PT STATES THAT HE DOES NOT WANT TO BUT AT THE SAME TIME HE "DOESN'T WANT TO WAKE UP". PT STATES THAT THOUGHTS HAVE BECOME MORE INTENCE AFTER HE LAST USED METH/HERION APPROX 1 MTH AGO. PT IS COOPERATIVE AND NON-CONFRONTATIONAL
[2020-04-05] MEDS ORDERED: ondansetron 4mg rapidly disintigrating tab PO PRN (16:50)
--- NOTE | 2020-04-05 19:02 | NUR ---
Pt packet faxed to [facility]
[2020-04-05] MEDS: buprenorphine/naloxone 8MG-2MG SUBlingual film SL SCH (20:24)
[2020-04-05] MEDS: ibuprofen tablet 400 MG TABLET PO SCH (20:25)
--- NOTE | 2020-04-05 20:30 | NUR ---
Patient was sleeping in a prone position. He awoke to voice, requested and was given his suboxone rx along with motrin. Patient returning to sleep, no distress.
--- NOTE | 2020-04-05 21:47 | NUR ---
Patient sleeping on his left side, low fowlers in bed. In direct view from nursing station.
--- NOTE | 2020-04-05 23:04 | NUR ---
Patient awake, ambulates to bathroom to void. Normal gait. Returns to bed without problem.
--- NOTE | 2020-04-06 01:32 | NUR ---
Bed is in low fowlers position. Patient is sleeping on his left side.
--- NOTE | 2020-04-06 03:48 | NUR ---
Patient sleeping low fowlers in bed. No distress.
--- NOTE | 2020-04-06 04:59 | NUR ---
Patient is sleeping on his left side, no distress.
[2020-04-06 05:58] VITALS: BP 117/73
--- NOTE | 2020-04-06 06:04 | NUR ---
Patient awoke for vitals. He complains of anxiety, this was common throughout the shift. A secondary complaint of a molar toothache. Patient does not exhibit pain. Patient rolls over and falls asleep.
--- NOTE | 2020-04-06 08:16 | NUR ---
UP EATING BREAKFAST AND USING BR.
[2020-04-06] MEDS: buprenorphine/naloxone 8MG-2MG SUBlingual film SL SCH (08:31)
[2020-04-06] MEDS: gabapentin 300mg capsule PO SCH ×2 (08:32)
[2020-04-06] MEDS: ibuprofen tablet 400 MG TABLET PO SCH (08:32)
[2020-04-06] MEDS ORDERED: acetaminophen 325mg tablet PO PRN (09:35)
--- NOTE | 2020-04-06 09:42 | NUR ---
PT REPORTS HE HAS A DENTAL INFECTION AND HAS BEEN ON AMOXICILLAN, NOTIFIED AND PT PAIN LEVEL EVEN WITH MOTRIN. NEW ORDERS APAP AND AUGMENTIN. MD BENNETT SPOKE WITH PHARMACIST REGARDING ALLERGIES. PT DELFINA AND TURNING OVER IN BED FREQUENTLY AND LOUDLY. PT ASKING IF HES GOING UPSTAIRS. ADVISED HIM CLAUDIA NAYLOR WOULD BE OUT TO SPEAK WITH HIM NEXT ABOUT A PLAN.
[2020-04-06] MEDS ORDERED: amox tr/potassium clavulanate 875/125mg TAB PO SCH (10:48)
[2020-04-06] MEDS ORDERED: AMOX-422 PO (11:31)
[2020-04-06] MEDS ORDERED: amoxicillin PO (11:59)
[2020-04-06] MEDS ORDERED: TEST200V10 IM (12:21)
[2020-04-06] MEDS ORDERED: acetaminophen 325mg tablet PO ONE (16:00)
== END 2020-04-06 11:08 ==
LOC: ER 15:01
DX: F41.9 Anxiety disorder, unspecified (principal); R45.851 Suicidal ideations; F32.9 Major depressive disorder, single episode, unspecified; F15.90 Other stimulant use, unspecified, uncomplicated; F11.90 Opioid use, unspecified, uncomplicated; Z88.8 Allergy status to other drugs, medicaments and biological substances; Z79.899 Other long term (current) drug therapy
CPT/HCPCS: 80053; 80305; 80320; 85007; 85025; 99285

== ENCOUNTER 2020-04-06 10:10 | Inpatient (IN) | payer OTHER ==
[~2020-04-06] VITALS: Ht 188 cm; Wt 87.0 kg
[~2020-04-06 10:10] MED LIST changes: -QUET-1 PO
[2020-04-06] MEDS ORDERED: mag hydrox/Alum hydrox/simeth 30ml oral suspension PO PRN (11:20)
[2020-04-06] MEDS ORDERED: traZODone 50mg tablet PO PRN (11:20)
[2020-04-06] MEDS ORDERED: loperamide 2mg capsule PO PRN (11:20)
[2020-04-06] MEDS ORDERED: acetaminophen 325mg tablet PO PRN (11:20)
[2020-04-06] MEDS ORDERED: AMOX-422 PO (11:31)
--- NOTE | 2020-04-06 11:38 | NUR ---
Admission note: Pt admitted to [place] for Behavioral health today at 1105 on 5150 for DTS. Pt is diagnosed with major depression. He is not on medications and has suicidal thoughts with a plan and intent. Pt also has history of anxiety, paranoia and hep C. Pts psychiatrist is Dr Govea.
[2020-04-06] MEDS ORDERED: ondansetron 4mg rapidly disintigrating tab PO PRN (11:50)
[2020-04-06] MEDS ORDERED: amoxicillin PO (11:59)
[2020-04-06] MEDS: LORazepam 1 MG tablet PO PRN ×4 (12:13→20:54)
[2020-04-06] MEDS ORDERED: TEST200V10 IM (12:21)
[2020-04-06 12:27] VITALS: BP 120/90
[2020-04-06] MEDS: nicotine 21mg patch - 24 hr TD SCH (12:30)
[2020-04-06] MEDS ORDERED: NICOTINE POLACRILEX 2 MG LOZENGE BC PRN (12:30)
[2020-04-06] MEDS ORDERED: benzocaine (Anbesol) 12ml bottle MM PRN (12:35)
[2020-04-06] MEDS: buprenorphine/naloxone 8MG-2MG SUBlingual film SL SCH ×2 (12:43→20:04)
[2020-04-06] MEDS ORDERED: TESTOSTERONE CYPIONATE 200 MG/ML VIAL IM SCH (12:50)
[2020-04-06] MEDS: NICOTINE POLACRILEX 2 MG LOZENGE BC PRN ×3 (13:05→18:23)
[2020-04-06] MEDS: benzocaine (Anbesol) 12ml bottle MM PRN ×2 (14:03→17:58)
[2020-04-06] MEDS: acetaminophen 325mg tablet PO PRN ×2 (14:21→17:58)
--- NOTE | 2020-04-06 15:19 | NUR ---
Malnutrition consult re: requesting double portions. Per diet order pt will get double protein and double portions. Per documented wt history pt at [facility]. No edema. Good appetite. No malnutrition. Addendum: 04/06/20 at [address] Amended: Links added.
[2020-04-06] MEDS ORDERED: gabapentin 300mg capsule PO SCH (16:00)
--- NOTE | 2020-04-06 16:49 | NUR ---
Pt states he worked at [employer], but then became involved in a bad group of people and started making poor decisions. Pt states he was driven towards meth because of his restlessness/anxiety and racing thoughts. Pt began to use meth, states that the first use would help him feel calm and less anxious/restless, but then would continue to abuse. In Jul 2019, he was evicted from his apartment for not paying rent due to substance abuse. Pt has been admitted to facilities multiple times this year and was at a [facility] prior to admittance to , But my thoughts were just going so fast, I felt panicky, and the only way I could think of stopping it would be to go to sleep and never wake up. Pt states his anxiety is worse in the morning. He hopes to return to Sober Living and pt states I really want to get my life straight again and work at [employer] again. Drug History +THC: Restarted in recent months, trying to quit, has used on/off for 10 years Meth: Last use prior to admittance to [facility], on/off for years but really began to abuse this year and it just spiraled ETOH: Denies Tobacco: Pack+/daily for 10 years Health History Heartburn, Low testosterone (Weekly (QFriday) IM testosterone 100mg injections), Hep C, Pt L lower molar hurts (prescribed Orajel and Augmentin) Social History Divorce, 2014 I lost everything, it took me 3 years to get through Mental Status Exam SI/HI: Denies AH/VH: Denies Appearance: Clean, showered on admit, wearing unit scrubs and hat Eye contact: Good Behavior: listening to headphones, using workout machine, chatting with peers, watching TV, pt is very restless Speech: Clear, pressured at times Mood: Anxious 03/01 Affect: Congruent Thought process: hoping to get medications sorted while he is here to stop mind from racing Thought Content: needing sleep medicine and medicine to stop racing thoughts driven by anxiety Cognition: A&Ox4 Insight: Poor Judgment: Poor to fair PRNs: Nicotine Janie x2, Ativan 2mg, Orajel x1, Tylenol 650mg
[2020-04-06 19:18] VITALS: BP 137/69
[2020-04-06] MEDS: ibuprofen tablet 400 MG TABLET PO SCH (20:03)
[2020-04-06] MEDS: amox tr/potassium clavulanate 875/125mg TAB PO SCH (20:04)
[2020-04-06] MEDS: zolpidem 5mg tablet PO PRN ×2 (20:55→21:58)
[2020-04-06] MEDS ORDERED: OLANZAPINE 5 MG TABLET PO SCH (21:00)
[2020-04-06] MEDS: gabapentin 300mg capsule PO SCH (21:12)
[2020-04-06] MEDS: magnesium hydroxide 30ml (MOM) UD suspension PO PRN (21:16)
--- NOTE | 2020-04-07 06:00 | NUR ---
Nursing Note: Legal status: 5150 Involuntary for DTS Admission note: Pt admitted to [place] for Behavioral health today at 1105 on 5150 for DTS. Pt is diagnosed with major depression. He is not on medications and has suicidal thoughts with a plan and intent. Pt also has history of anxiety, paranoia and hep C. Pts psychiatrist is Dr Govea. Mental Status Exam What happened this shift: Patient observed socializing with peers at the beginning of shift. Pleasant and cooperative with care. Compliant with medication. PRN Ambien, Ativan and Tylenol provided upon request. Patient denies SI, HI, A/VH. He reports he is here to "better his life." Patient WBC 2.3 and reported to ELIZABETH Ramirez with no new orders at this time. Patient reported his WBC is regularly between 1.6 and 2.2 but when parts data writer asked about Hx of Leukemia he denied and stated, "my body just fails me." Patient remained on the unit engaging with staff and peers until retiring to bed around 2200. SI/HI: Denies AH/VH: Denies Appearance: Neat, clean and appropriate Eye contact: Good Behavior: Pleasant and cooperative, socializing Speech: Clear, regular rate/rhythm Mood: Anxious Affect: Animated Thought process: Goal oriented Thought Content: Bettering his life Cognition: A&Ox4 Insight: Poor Judgment: Poor to fair PRNs: Ativan X2, Ambien x2, Tylenol, MOM
[2020-04-07] MEDS: LORazepam 1 MG tablet PO PRN ×5 (06:22→20:30)
[2020-04-07 06:42] LABS: CHOL/HDL RATIO 3.9 (0.00-4.99); CHOLESTEROL 122 MG/DL (0-200); HDL CHOLESTEROL 31 MG/DL (35-60); TRIGLYCERIDES 76 MG/DL (20-135)
[2020-04-07 06:43] LABS: LDL CHOLESTEROL 81 MG/DL (50-100)
[2020-04-07 07:07] LABS: HEMOGLOBIN A1C 5.2 % (4.5-6.2)
[2020-04-07] MEDS: buprenorphine/naloxone 8MG-2MG SUBlingual film SL SCH ×3 (07:44→20:10)
[2020-04-07] MEDS: ibuprofen tablet 400 MG TABLET PO SCH ×2 (07:44→20:10)
[2020-04-07] MEDS: gabapentin 300mg capsule PO SCH ×3 (07:44→20:09)
[2020-04-07] MEDS: amox tr/potassium clavulanate 875/125mg TAB PO SCH ×2 (07:44→20:10)
[2020-04-07] MEDS: nicotine 21mg patch - 24 hr TD SCH (07:51)
[2020-04-07 08:00] VITALS: BP 139/86
[2020-04-07] MEDS ORDERED: nicotine 21mg patch - 24 hr TD SCH (08:00)
[2020-04-07] MEDS: NICOTINE POLACRILEX 2 MG LOZENGE BC PRN (09:17)
[2020-04-07] MEDS: acetaminophen 325mg tablet PO PRN (12:56)
[2020-04-07] MEDS: benzocaine (Anbesol) 12ml bottle MM PRN ×2 (12:56→21:20)
--- NOTE | 2020-04-07 15:14 | NUR ---
Nursing Progress Note: Legal hold: 5150 Client on involuntary status for DTS. Report received from RN with use of SBAR. Why are they here: Pt admitted to [place] for Behavioral health on 5150 for DTS. Pt has suicidal thoughts with a plan and intent. Pt is diagnosed with major depression. He is not on medications and Pt also has history of anxiety, paranoia, substance dependence and hep C. Assessment What has happened this shift: Received Pt in bed sleeping w/o distress at beginning of shift. Pt awoke early and engaged with this RN in a friendly manner and willing to talk about his addiction issues and his Tx. Pt cooperative with vitals and ate all meals well with others in community room. Pt hopeful about his tx in future and wants to work again at [employer]. He reports having three children who he wants to engage with in future and is currently living at a sober living house. Pt anxious throughout day and received Ativan 2X and used Tylenol and Ambesol PRN for tooth pain. Currently denying SI. S/I, H/I: Denies A/VH: Denies Sleep: None this shift ADL's: Independent Group attendance: Yes Were Meds taken: Yes Any med S/E: None observed or reported Mental Status Exam Appearance: Well [place] Eye contact: Good Behavior: Cooperative Speech: Clear, audible, regular rate/rhythm Mood: Euthymic Affect: Congruent to mood Thought process: Linear Thought Content: Depression Cognition: Intact Insight: Fair Judgment: Fair Interventions PRN's used: Ativan, Nicotine Janie., Ambesol Therapeutic interventions: 1:1 assessment, established rapport, therapeutic communication with active listening, medication administration/education/monitoring, q15m safety checks. Restraints/seclusion/emergency medication: None Justification of Continued Inpatient Treatment: Patient requires interruption of current crisis, medication adjustments, and a safe and therapeutic environment.
[2020-04-07] MEDS ORDERED: OLANZapine 2.5MG tablet PO ONE (17:00)
[2020-04-07] MEDS: OLANZapine 2.5MG tablet PO PRN (19:33)
[2020-04-07 20:00] VITALS: BP 138/88
[2020-04-07] MEDS: divalproex sod 250mg ER (24-hour) tablet PO SCH (20:10)
[2020-04-07] MEDS: OLANZAPINE 5 MG TABLET PO SCH (20:10)
[2020-04-07] MEDS: zolpidem 5mg tablet PO PRN (20:29)
[2020-04-07] MEDS: magnesium hydroxide 30ml (MOM) UD suspension PO PRN (20:33)
--- NOTE | 2020-04-08 05:11 | NUR ---
Nursing Progress Note: Legal hold: 5150 Client on involuntary status for DTS. Report received from TIMOTHY Brock with use of SBAR. Why are they here: Pt admitted to [place] for Behavioral health on 5150 for DTS. Pt has suicidal thoughts with a plan and intent. Pt is diagnosed with major depression. He is not on medications and Pt also has history of anxiety, paranoia, substance dependence and hep C. Assessment What has happened this shift: Patient laying in bed with covers pulled over head at the beginning of shift. Patient continues to express high anxiety. Pleasant and cooperative with care; compliant with medication. PRN Zyprexa, Ativan, Ambien and Anbesol provided upon request. MOM provided upon c/o constipation with no result reported. Patient c/o continuous tooth pain; remains on scheduled Motrin and amoxicillin. Denies SI, HI, A/VH. Patient observed sitting in the community room socializing with peers later in the shift. Participated in HS snack prior to bed. Patient observed sleeping and does not appear to be having difficulty. S/I, H/I: Denies A/VH: Denies Sleep: Refer to sleep assessment ADL's: Independent Group attendance: No groups this shift Were Meds taken: Yes Any med S/E: None observed or reported Mental Status Exam Appearance: Neat, clan an appropriate Eye contact: Good Behavior: Cooperative, socializing Speech: Clear, audible, regular rate/rhythm Mood: Euthymic Affect: Congruent to mood Thought process: Linear Thought Content: Getting hi life together Cognition: Intact Insight: Fair Judgment: Fair Interventions PRN's used: Zyprexa, Ativan, Anbesol Therapeutic interventions: 1:1 assessment, established rapport, therapeutic communication with active listening, medication administration/education/monitoring, q15m safety checks. Restraints/seclusion/emergency medication: None Justification of Continued Inpatient Treatment: Patient requires interruption of current crisis, medication adjustments, and a safe and therapeutic environment.
[2020-04-08] MEDS: ibuprofen tablet 400 MG TABLET PO SCH ×2 (07:50→20:42)
[2020-04-08] MEDS: amox tr/potassium clavulanate 875/125mg TAB PO SCH ×2 (07:50→20:42)
[2020-04-08] MEDS: gabapentin 300mg capsule PO SCH ×3 (07:51→21:00)
[2020-04-08] MEDS: OLANZapine 2.5MG tablet PO PRN (07:51)
[2020-04-08] MEDS: buprenorphine/naloxone 8MG-2MG SUBlingual film SL SCH ×3 (07:51→20:42)
[2020-04-08] MEDS: nicotine 21mg patch - 24 hr TD SCH (07:53)
[2020-04-08 08:49] VITALS: BP 110/71
[2020-04-08] MEDS: LORazepam 1 MG tablet PO PRN (09:54)
[2020-04-08] MEDS: NICOTINE POLACRILEX 2 MG LOZENGE BC PRN ×2 (10:33→15:27)
[2020-04-08] MEDS: acetaminophen 325mg tablet PO PRN (13:01)
[2020-04-08] MEDS: benzocaine (Anbesol) 12ml bottle MM PRN (13:01)
--- NOTE | 2020-04-08 13:39 | NUR ---
Nursing Progress Note: Legal hold: 5150 Client on involuntary status for DTS. Report received from Jennifer Chen RN with use of SBAR. Why are they here: Pt admitted to [facility] for Behavioral health on 5150 for DTS. Pt has suicidal thoughts with a plan and intent. Pt is diagnosed with major depression. He is not on medications and Pt also has history of anxiety, paranoia, substance dependence and hep C. Assessment What has happened this shift: Pt was up for breakfast. He requested PRN Ativan for anxiety. Pt educated that per doctor's orders PRN Zyprexa 2.5 mg is to be given first and then if ineffective, may give PRN Ativan. PRN Zyprexa given at 0751. Pt asked for the PRN Ativan 1 mg at 0954. He requested a nicotine lozenge at 1033. Pt denies depression and SI. Pt stated, "I'm not depressed." Pt rated his anxiety level at a 7/10. Pt explained that he gets anxious due to racing thoughts. He described difficulty focusing. Pt went on to say that when these racing thoughts continue for long periods of time that he can't sleep well for days and then his head gets messed up and he can't think clearly, "but I'm not Bipolar." "I get really frustrated because I can't control my mind. Pt described a period in his life when he was staying busy with 2 jobs and working out and doing well. Pt expresses a desire to be able to get back to functioning well in life again. Pt presents as high energy, he is restless and has difficulty focusing with somewhat rapid speech and high anxiety. He is somewhat med seeking, he frequently requests PRNs. Pt was back asking for more Ativan at 1114, educated that it was too soon and that he would have to take the Zyprexa again first. Pt asked if he could have the Zyprexa then and was informed that it was also too soon to take it again. Asked pt if he felt like the Suboxone he was taking was helping. Pt was ambivalent in his response and expressed that he didn't think it helped him much. Pt requested PRN Tylenol 650 mg and Anbesol for tooth pain at 1301, pt continues on PO ABX Augmentin, no adverse reactions noted. Pt's PRN Ativan was D/c'd today, his PRN Zyprexa was increased to 5 mg, and Klonopin 0.5 mg BID routine was added. S/I, H/I: Pt denies A/VH: Pt denies Sleep: Pt slept 7.25 hours last night per noc shift report. ADL's: Independent Group attendance: No groups today. Were Meds taken: Yes Any med S/E: None noted or reported. Mental Status Exam Appearance: Neat, clean, dressed in street clothes and a black baseball cap worn backwards. Eye contact: Good Behavior: Restless, socializes with peers, med-seeking Speech: Clear, audible, somewhat rapid. Mood: Anxious Affect: Anxious Thought process: Racing thoughts, difficulty focusing. Thought Content: His racing thoughts lead to high anxiety, he wants to be able to control his mind, he needs more anti-anxiety meds. Cognition: A/O X 4 Insight: Fair Judgment: Fair Interventions PRN's used: Zyprexa, Ativan, Anbesol, Tylenol Therapeutic interventions: 1:1 assessment, establishment of rapport, therapeutic communication with active listening, medication administration/education/monitoring, behavior monitoring and intervention as needed; limit setting, distraction, and redirection, Q 15 minute safety checks. Restraints/seclusion/emergency medication: None Justification of Continued Inpatient Treatment: Patient requires interruption of current crisis with medication adjustments and monitoring in a safe and therapeutic environment. Addendum: 04/08/20 at 1530 by Ne Sanford RN (Lee) Pt stated that his nicotine patch fell off in the shower, he handed the patch to this RN. Pt opted to not have a new one applied today but will just ask for nicotine lozenges. Pt asked for PRN Zydis 5 mg and a nicotine lozenge both given at 1527.
[2020-04-08] MEDS: OLANZapine 5mg rapidly disint. tablet PO PRN ×2 (15:27→22:15)
[2020-04-08 19:17] VITALS: BP 114/68
[2020-04-08] MEDS: divalproex sod 250mg ER (24-hour) tablet PO SCH (20:42)
[2020-04-08] MEDS: clonazePAM 0.5mg tablet PO SCH (20:42)
[2020-04-08] MEDS: OLANZAPINE 5 MG TABLET PO SCH (20:42)
[2020-04-08] MEDS ORDERED: gabapentin 400mg capsule PO ONE (20:55)
[2020-04-08] MEDS ORDERED: gabapentin 100mg capsule PO ONE (20:55)
[2020-04-08] MEDS: zolpidem 5mg tablet PO PRN ×2 (21:09→21:49)
--- NOTE | 2020-04-09 04:58 | NUR ---
Nursing Progress Note: Legal hold: 5150 Client on involuntary status for DTS. Report received from TIMOTHY Brock with use of SBAR. Why are they here: Pt admitted to [facility] for Behavioral health on 5150 for DTS. Pt has suicidal thoughts with a plan and intent. Pt is diagnosed with major depression. He is not on medications and Pt also has history of anxiety, paranoia, substance dependence and hep C. Assessment What has happened this shift: Patient observed sleeping at the beginning of shift. He woke for HS snack. Patient denies SI, HI, A/VH. Observed wathcing TV in the recreation room and appropriately socializing with peers while waiting for HS medication. Pleasant and cooperative with care; compliant with medication. Patient continues to c/o tooth pain. Patient remains on scheduled PO ABx and Anbesol PRN. PRN Ambien with repeat dose provided upon request. Patient observed sleeping and does not appear to be having difficulty. S/I, H/I: Denies A/VH: Denies Sleep: Refer to sleep assessment ADL's: Independent Group attendance: No groups this shift Were Meds taken: Yes Any med S/E: None observed or reported Mental Status Exam Appearance: Neat, clan and appropriate Eye contact: Good Behavior: Cooperative Speech: Clear, audible, regular rate/rhythm Mood: Euthymic Affect: Flat Thought process: Linear Thought Content: Tooth pain, sleep Cognition: Intact Insight: Fair Judgment: Fair Interventions PRN's used: Ambien and Anbesol Therapeutic interventions: 1:1 assessment, established rapport, therapeutic communication with active listening, medication administration/education/monitoring, q15m safety checks. Restraints/seclusion/emergency medication: None Justification of Continued Inpatient Treatment: Patient requires interruption of current crisis, medication adjustments, and a safe and therapeutic environment.
[2020-04-09] MEDS: nicotine 21mg patch - 24 hr TD SCH (07:47)
[2020-04-09] MEDS: amox tr/potassium clavulanate 875/125mg TAB PO SCH ×2 (07:47→20:28)
[2020-04-09] MEDS: buprenorphine/naloxone 8MG-2MG SUBlingual film SL SCH ×3 (07:48→20:28)
[2020-04-09] MEDS: clonazePAM 0.5mg tablet PO SCH ×2 (07:48→20:28)
[2020-04-09] MEDS: gabapentin 300mg capsule PO SCH ×3 (07:48→20:28)
[2020-04-09] MEDS: ibuprofen tablet 400 MG TABLET PO SCH ×2 (07:48→20:28)
[2020-04-09 08:00] VITALS: BP 113/67
[2020-04-09] MEDS: OLANZapine 5mg rapidly disint. tablet PO PRN (08:22)
[2020-04-09] MEDS: NICOTINE POLACRILEX 2 MG LOZENGE BC PRN ×3 (08:22→20:28)
[2020-04-09] MEDS ORDERED: lisdexamfetamine dimesylate 30mg capsule PO ONE (11:30)
[2020-04-09] MEDS ORDERED: hydrOXYzine 25 MG tablet PO PRN (11:30)
[2020-04-09] MEDS ORDERED: lisdexamfetamine dimesylate 40mg capsule PO ONE (16:30)
--- NOTE | 2020-04-09 17:16 | NUR ---
Nursing Progress Note: Legal hold: 5150 Client on involuntary status for DTS. Report received from RN with use of SBAR. Why are they here: Pt admitted to [facility] [place] for Behavioral health on 5150 for DTS. Pt has suicidal thoughts with a plan and intent. Pt is diagnosed with major depression. He is not on medications and Pt also has history of anxiety, paranoia, substance dependence and hep C. Assessment What has happened this shift: Received Pt in bed sleeping w/o distress at beginning of shift. Pt cooperative with vitals and AM assessments. Pt ate all meals well with others in community room and socialized with others around card games and watching TV. Pt remains hopeful about his tx in future and wants to get his medications correct before discharge. He expressed concern about change to Klonipin and toward medications that are not Benzos to help tx his anxiety. He did not seek meds for anxiety today, but did have bad dreams after a nap he took and was able to calm and self-regulate. Pt denies current SI. S/I, H/I: Denies A/VH: Denies Sleep: None this shift ADL's: Independent Group attendance: Yes, went to patio Were Meds taken: Yes Any med S/E: None observed or reported Mental Status Exam Appearance: Casual Eye contact: Good Behavior: Cooperative Speech: Clear, audible, regular rate/rhythm Mood: Euthymic Affect: Congruent to mood Thought process: Linear Thought Content: Depression Cognition: Intact Insight: Fair Judgment: Fair Interventions PRN's used: Nicotine Janie. Therapeutic interventions: 1:1 assessment, established rapport, therapeutic communication with active listening, medication administration/education/monitoring, q15m safety checks. Restraints/seclusion/emergency medication: None Justification of Continued Inpatient Treatment: Patient requires interruption of current crisis, medication adjustments, and a safe and therapeutic environment.
[2020-04-09] MEDS: acetaminophen 325mg tablet PO PRN (18:27)
[2020-04-09 19:28] VITALS: BP 153/94
[2020-04-09] MEDS: OLANZAPINE 5 MG TABLET PO SCH (20:28)
[2020-04-09] MEDS: benzocaine (Anbesol) 12ml bottle MM PRN (21:59)
--- NOTE | 2020-04-10 04:08 | NUR ---
Nursing Progress Note: Legal hold: VOL Client on voluntary status. Report received from TIMOTHY Brock with use of SBAR. Why are they here: Pt admitted to [place] for Behavioral health on 5150 for DTS. Pt has suicidal thoughts with a plan and intent. Pt is diagnosed with major depression. He is not on medications and Pt also has history of anxiety, paranoia, substance dependence and hep C. Assessment What has happened this shift: Patient observed playing card games and socializing with peers appropriately at the beginning of shift. Pleasant and cooperative with care; compliant with medication. PRN Imodium provided for c/o diarrhea. PRN Nicotine and Anbesol provided upon request. Patient continues to deny SI, HI, A/VH this shift. Participated in HS snack and continued to socialize with peers prior to bed. Observed sleeping and does not appear to be having difficulty. S/I, H/I: Denies A/VH: Denies Sleep: Refer to sleep assessment ADL's: Independent Group attendance: No groups this shift Were Meds taken: Yes Any med S/E: None observed or reported Mental Status Exam Appearance: Neat, clan and appropriate Eye contact: Good Behavior: Cooperative, socializing Speech: Clear, audible, regular rate/rhythm Mood: Euthymic Affect: Flat Thought process: Linear Thought Content: Tooth pain, diarrhea Cognition: Intact Insight: Fair Judgment: Fair Interventions PRN's used: Imodium, Anbesol, Nicotine lozenge Therapeutic interventions: 1:1 assessment, established rapport, therapeutic communication with active listening, medication administration/education/monitoring, q15m safety checks. Restraints/seclusion/emergency medication: None Justification of Continued Inpatient Treatment: Patient requires interruption of current crisis, medication adjustments, and a safe and therapeutic environment.
[2020-04-10] MEDS: clonazePAM 0.5mg tablet PO SCH ×2 (07:52→20:15)
[2020-04-10] MEDS: amox tr/potassium clavulanate 875/125mg TAB PO SCH ×2 (07:52→20:15)
[2020-04-10] MEDS: ibuprofen tablet 400 MG TABLET PO SCH ×2 (07:52→20:15)
[2020-04-10] MEDS: gabapentin 300mg capsule PO SCH ×3 (07:53→20:15)
[2020-04-10] MEDS: buprenorphine/naloxone 8MG-2MG SUBlingual film SL SCH ×3 (07:54→20:14)
[2020-04-10 08:00] VITALS: BP 108/67
[2020-04-10] MEDS: nicotine 21mg patch - 24 hr TD SCH (08:00)
[2020-04-10] MEDS ORDERED: lisdexamfetamine dimesylate 30mg capsule PO SCH (08:00)
[2020-04-10] MEDS ORDERED: lisdexamfetamine dimesylate 40mg capsule PO SCH (08:00)
[2020-04-10] MEDS: NICOTINE POLACRILEX 2 MG LOZENGE BC PRN ×2 (09:26→13:28)
--- NOTE | 2020-04-10 10:00 | NUR ---
Group Therapy: Process Group This Clinicians goal for this process group were as follows: (1) Ask scaling questions about patients current anxiety, depression, and irritability symptoms as a check-in (2) Introduce and provide psychoeducation on distress tolerance skills. (2) Introduce the concept of radical acceptance and using our senses to self-soothe. (3) Share the acronym, BebaE Activities; Contributing; Comparisons; Emotions; Pushing Away; Thoughts; and Sensations (4) Process Patients thoughts and reflections on this topic within the group milieu. Patient identified experiencing the following levels of anxiety, depression, and anger/irritability while present in the group milieu (0-low; 10-High). Anxiety: 2/10 Depression: 0/10 Anger/irritability: 2-310 Patient presented as properly oriented x4 during the process group. Patient was dressed in nondescript, personal clothing that were appropriate within the milieu. Psychomotor activity was unremarkable. Patient's thought content was clear, and concrete. Patient's thought process was clear, coherent, and linear. This Clinician did not observe Patient responding to any internal stimuli during session. The rate, latency, and tone of Patients speech was within normal limits. Patient maintained regular eye contact with this Clinician. Patient presented in calm euthymic mood, with congruent affect during the process group. Patient presented as open and cooperative, and was verbally engaged and nonobtrusive within the group milieu. Patient was an active participant during the group discussion on interventions one could utilize to increase one's stress tolerance. Patient reported that he frequently tries to reframe negative situations in his life in a manner in which he can look on the negative situation to see if there are any positive ways to think about it, which brightens his mood. Patient interacted patiently and appropriately with his peers. Kwaebna Oshea MA, HAND LEATHER TRIMMER Addendum: 04/10/20 at 1124 by Kwabena Oshea SS Amended: Links added.
--- NOTE | 2020-04-10 14:12 | NUR ---
Nursing Progress Note: Legal hold: Voluntary Report received from TIMOTHY Gay with use of SBAR. Why are they here: Pt admitted to [facility] for [facility] health on 5150 for DTS. Pt has suicidal thoughts with a plan and intent. Pt is diagnosed with major depression. He is not on medications and Pt also has history of anxiety, paranoia, substance dependence and hep C. Assessment What has happened this shift: Pt was up before breakfast. Pt denied depression or SI. Pt reported that his racing thoughts were "much better." Pt indicated that he felt he was doing better because of the Vyvanse. Pt asked about labs. He was wondering if any further labs had been ordered for him. Reviewed pt's most recent labs from 04/05. His WBC's wee 2.3 and neutrophil count 0.7. Pt stated that he had a theory that his white blood cell count being low was from the medications he was on. Education provided that this is not a side effect of any of his medications. Pt was pleasant and cooperative with medications and unit procedures. He socializes and interacts with peers appropriately. Overheard pt giving diet and fitness advice to a female peer who indicated a desire to lose weight. Pt exercised/walked in the hallway with the female peer. Pt attends groups. S/I, H/I: Pt denies A/VH: Pt denies Sleep: Pt slept 6.75 hours last night per noc shift report. ADL's: Independent Group attendance: Yes, attended both groups. Were Meds taken: Yes Any med S/E: None noted or reported. Mental Status Exam Appearance: Neat, clean, dressed in green scrub pants, a ti-shirt, and a baseball cap worn backwards. Eye contact: Good Behavior: Pleasant, cooperative, socializes peers, attends groups, watches TV in the rec room. Speech: Clear, audible, talkative Mood: Euthymic Affect: Euthymic, outgoing. Thought process: Linear Thought Content: He is feeling much better, future oriented, pt looking over a print out for available housing in [place]. Cognition: A/O X 4 Insight: Fair Judgment: Fair to Good Interventions PRN's used: Nicotine lozenges Therapeutic interventions: 1:1 assessment, therapeutic communication with active listening, medication administration/education/monitoring, provided encouragement and positive reinforcement, Q 15 minute safety checks. Restraints/seclusion/emergency medication: None Justification of Continued Inpatient Treatment: Patient requires interruption of current crisis with medication adjustments and monitoring in a safe and therapeutic environment. Addendum: 04/10/20 at 1551 by Ne Sanford RN (Lee) Pt has new orders for Vyvanse 10 mg once, Vyvanse increased to 50 mg PO daily. He also has new orders for Soma 350 mg Q6H PRN muscle spasms, Melatonin 12 mg HS, CBC/diff, free testosterone, testosterone serum, and Vit B-12 labs tomorrow.
--- NOTE | 2020-04-10 14:38 | NUR ---
DISCHARGE PLANNING Met with Caleb to discuss his discharge plan. He reported he plans on returning to [facility] on [address]. He reported he wants to find his own apartment. He reported he wants to return to work at [employer] and is under the impression that he will be able to return. He asked for assistance with a list of available [employer] apartments. He reported he knows what he needs to do to get back on his feet and get into a good routine. He reported he has an appt at Dr Govea office Nov 2. Caleb denied any current SI or HI and he reported he feels like he is ready to return home. Later provided him with a list of available apartments for rent in [place]. Appliance Counselor will attempt to schedule a follow up appt with his PCP. ASUNCION Carter
[2020-04-10] MEDS ORDERED: lisdexamfetamine dimesylate 10mg capsule PO ONE (15:15)
[2020-04-10 20:00] VITALS: BP 122/72
[2020-04-10] MEDS: OLANZAPINE 5 MG TABLET PO SCH (20:14)
[2020-04-10] MEDS: acetaminophen 325mg tablet PO PRN (20:15)
[2020-04-10] MEDS ORDERED: Melatonin 3mg tablet PO SCH (21:00)
[2020-04-10] MEDS: benzocaine (Anbesol) 12ml bottle MM PRN (21:07)
--- NOTE | 2020-04-10 23:42 | NUR ---
Nursing Progress Note: Legal hold: VOL Client on voluntary status. Report received from TIMOTHY Brock with use of SBAR. Why are they here: Pt admitted to [facility] for Behavioral health on 5150 for DTS. Pt has suicidal thoughts with a plan and intent. Pt is diagnosed with major depression. He is not on medications and Pt also has history of anxiety, paranoia, substance dependence and hep C. Assessment What has happened this shift: The patient was seen in the group room playing cards with another client. He reports that he's doing well so far. "The Vyvance seems to be helping me think better, less racing, more coherent." He states that he's able to sit and play cards without any distractions going on inside. He's pleasant and seems to enjoy being around other people. He denies any SI/HI, or AV/h. He c/o headache and tooth pain which has resolved with Anbesol and Tylenol. He states he needs 6 teeth extracted. The patient spent the evening in the group room until ~2200 when he went to bed. S/I, H/I: Denies A/VH: Denies Sleep: Refer to sleep assessment ADL's: Independent Group attendance: No groups this shift Were Meds taken: Yes Any med S/E: None observed or reported Mental Status Exam Appearance: Neat, clean and appropriately dressed in his own street clothes. Eye contact: Good Behavior: Cooperative, socializing, playing cards Speech: Clear, audible, regular rate/rhythm Mood: Euthymic Affect: Blunted Thought process: Linear Thought Content: Tooth pain, Headache Cognition: Intact Insight: Fair Judgment: Fair Interventions PRN's used: Anbesol, Tylenol Therapeutic interventions: 1:1 assessment, established rapport, therapeutic communication with active listening, medication administration/education/monitoring, q15m safety checks. Restraints/seclusion/emergency medication: None Justification of Continued Inpatient Treatment: Patient requires interruption of current crisis,
[2020-04-11] MEDS: OLANZapine 5mg rapidly disint. tablet PO PRN (04:54)
[2020-04-11 07:59] LABS: BASOPHILS % (AUTO) 0.7 % (0-1); EOSINOPHILS # (AUTO) 0.2 X10'3 (0-0.9); EOSINOPHILS % (AUTO) 11.5 % (0-6); HEMATOCRIT 40.7 % (42.0-52.0); HEMOGLOBIN 13.9 g/dl (14.0-17.9); LYMPHOCYTES % (AUTO) 53.1 % (21-51); MEAN CORPUSCULAR HEMOGLOBIN 31.1 PG (27.0-31.0); MEAN CORPUSCULAR HGB CONC 34.2 g/dL (33.0-36.5); MEAN PLATELET VOLUME 8.3 FL (7.4-10.4); MONOCYTES # (AUTO) 0.4 X10'3 (0-0.9); MONOCYTES % (AUTO) 21.1 % (2-12); NEUTROPHILS # (AUTO) 0.3 X10'3 (1.8-7.7); NEUTROPHILS % (AUTO) 13.6 % (42-75); PLATELET COUNT 133 X10'3 (140-440); RED BLOOD COUNT 4.47 X10'6 (4.70-6.10); RED CELL DISTRIBUTION WIDTH 12.5 % (11.5-14.5)
[2020-04-11 08:00] VITALS: BP 99/60
[2020-04-11] MEDS: lisdexamfetamine dimesylate 10mg capsule PO SCH ×2 (08:00→09:35)
[2020-04-11] MEDS ORDERED: lisdexamfetamine dimesylate 40mg capsule PO SCH (08:00)
[2020-04-11] MEDS: amox tr/potassium clavulanate 875/125mg TAB PO SCH (08:28)
[2020-04-11] MEDS: clonazePAM 0.5mg tablet PO SCH (08:28)
[2020-04-11] MEDS: gabapentin 300mg capsule PO SCH ×2 (08:28→12:36)
[2020-04-11] MEDS: ibuprofen tablet 400 MG TABLET PO SCH (08:28)
[2020-04-11] MEDS: buprenorphine/naloxone 8MG-2MG SUBlingual film SL SCH ×2 (08:29→12:36)
[2020-04-11] MEDS: nicotine 21mg patch - 24 hr TD SCH (08:31)
[2020-04-11] MEDS: NICOTINE POLACRILEX 2 MG LOZENGE BC PRN ×2 (09:16→12:37)
--- NOTE | 2020-04-11 10:00 | NUR ---
Group Therapy: Process Group This Clinicians goal for this process group were as follows: (1) Ask scaling questions about Patients current anxiety, depression, and irritability symptoms as a check-in. (2) Provide psychoeducation on differences between passive, passive-aggressive, assertive, and aggressive forms of communication. (3) Provide psychoeducation on fair fighting rules to illustrate principles of assertive communication. (4) Process Patients thoughts and reflections on this topic within the group milieu. Patient identified experiencing the following levels of anxiety, depression, and anger/irritability while present in the group milieu (0-low; 10-High). Anxiety: 3/10 Depression: 0/10 Anger/irritability: 3/10 Patient presented as properly oriented x4 during the process group. Patient was dressed in a hat, a melgar t-shirt, and [facility] scrub bottoms that were appropriate within the milieu. Psychomotor activity was unremarkable. Patient's thought content was clear, and concrete. Patient's thought process was clear, coherent, and linear. This Clinician did not observe Patient responding to any internal stimuli during session. The rate, latency, and tone of Patients speech was within normal limits. Patient maintained regular eye contact with this Clinician. Patient presented in calm euthymic mood, with congruent affect during the process group. Patient presented as open and cooperative, and was verbally engaged and nonobtrusive within the group milieu. Patient was an active participant during the conversation on different styles of communication and was able to give numerous examples from his personal experience where he both witnessed and participated in passive, assertive, and aggressive forms of communication. Patient interacted well with his peers. Patient mentioned that an intervention that he frequently tries to employ when talking with an aggressive person is to, "Walk away," from the situation so that he can think clearly and return to the conversation later when he feel more level-headed. Kwabena Oshea MA, VOLLEYBALL COACH Addendum: 04/11/20 at 1126 by Kwabena Oshea Amended: Links added.
[2020-04-11 10:10] LABS: LARGE PLATELETS FEW; PLATELET ESTIMATE DECREASED; SMUDGE CELLS 1+; TOTAL CELLS COUNTED 100
--- NOTE | 2020-04-11 12:09 | NUR ---
Initial: Pt admit with depression. Currently on a regular diet receiving double protein documented with 75-100% PO intake meeting estimated nutrient needs. LBM 04/09 documented as diarrhea though did receive PRN bowel care 04/07 with PRN antidiarrheal 04/09. No nutrition intervention warranted at this time. Will continue to follow. Recommendations: 1) Continue regular diet 2) Double protein BIDLD, no eggs per diet order 3) Bowel care per rx 4) Scaled weights per rx Addendum: 04/11/20 at [address] Amended: Links added.
--- NOTE | 2020-04-11 13:25 | NUR ---
Nursing Progress Note: Legal hold: Voluntary Report received from TIMOTHY Brock with use of SBAR. Why are they here: Pt admitted to [place] for Behavioral health on 5150 for DTS. Pt has suicidal thoughts with a plan and intent. Pt is diagnosed with major depression. He is not on medications and Pt also has history of anxiety, paranoia, substance dependence and hep C. Assessment What has happened this shift: Pt stated that he can't eat eggs this morning as they make his stomach hurt. Pt stated that he's not allergic to eggs but he doesn't eat them so he is still hungry. This RN added, "no eggs" to his dietary order. Right after breakfast pt asked if he could have an Uncrustable PB&J. Pt was asked to wait until scheduled snack time. Pt's Vyvanse 10 mg was not available at the correct time it was scheduled so it was given later at 0935 once Pharmacy got some in. Pt approached this nurse a bit later to say that he had an itch on the back of his leg so would like to have some hydrocortisone cream ordered. Assessed the area pt said was itching which was a spot on his lower calf; no rash or redness noted, skin appeared a little dry and pt was encouraged to try lotion to moisturize dry skin. Pt requested PRN nicotine lozenges at 0916 and 1237. Pt stated that he was feeling better with the increase in Vyvanse to 50 mg but he believes that 60 mg would be the better dose for him. Pt had lab work drawn this morning. His WBC are low at 2.0 and his neutrophil count is 0.3, platelets are at 133. Discussed findings with director Chrissy Mackenzie RN to determine if neutropenic precautions were necessary or if any infection control measures should be taken. She consulted with the hospital's infection manual control auger press operator and it was determined that no action was necessary at this time. S/I, H/I: Pt denies A/VH: Pt denies Sleep: Pt slept 7 hours last night per noc shift report. ADL's: Independent Group attendance: Yes Were Meds taken: Yes Any med S/E: None noted or reported. Mental Status Exam Appearance: Neat, clean, dressed in green scrub pants, a felicity-shirt, and a baseball cap worn backwards. Eye contact: Good Behavior: Cooperative, restless, makes frequent requests, socializes with peers, attends groups, watches TV in the rec room. Speech: Clear, audible, talkative Mood: Euthymic Affect: Euthymic, outgoing. Thought process: Linear Thought Content: His Vyvanse needs increased a little more, the brand of Suboxone the pharmacy sent today (different than yesterday) is a better one because he feels the bupropion more. Cognition: A/O X 4 Insight: Fair Judgment: Fair Interventions PRN's used: Nicotine lozenges Therapeutic interventions: 1:1 assessment, therapeutic communication with active listening, medication administration/education/monitoring, limit setting, provided encouragement and positive reinforcement, Q 15 minute safety checks. Restraints/seclusion/emergency medication: None Justification of Continued Inpatient Treatment: Patient requires interruption of current crisis with medication adjustments and monitoring in a safe and therapeutic environment.
[2020-04-11] MEDS ORDERED: MELA10TA2 PO (13:58)
[2020-04-11] MEDS ORDERED: HYDR50TA65 PO (13:58)
[2020-04-11] MEDS ORDERED: GABA600T13 PO (13:58)
[2020-04-11] MEDS ORDERED: CLON0.5T4 PO (13:58)
[2020-04-11] MEDS ORDERED: NICO-687 TD (13:58)
[2020-04-11] MEDS ORDERED: AMOX-580 PO (13:58)
[2020-04-11] MEDS ORDERED: OLAN5TAB26 PO (13:58)
[2020-04-11] MEDS ORDERED: ANBESOL MM (13:58)
[2020-04-11] MEDS ORDERED: LISD50CA3 PO (13:58)
--- NOTE | 2020-04-11 17:10 | NUR ---
DISCHARGE NOTE: Pt was discharged at 1610. He walked off the unit accompanied by RN out of the building to cab awaiting outside. Rx's were sent to [facility], all belongings were returned including Suboxone that was being stored in our pharmacy. Pt expressed understanding of discharge medications, instructions, and follow up care.
== END 2020-04-11 16:10 | disposition home or self-care (01) | DRG 897 ==
LOC: ADULT MH 11:10
PROVIDERS: ADMIT Psychiatry & Neurology Psychiatry; ATTEND Psychiatry & Neurology Psychiatry
DX: F19.94 Other psychoactive substance use, unspecified with psychoactive substance-induced mood disorder (principal); F11.20 Opioid dependence, uncomplicated; R45.851 Suicidal ideations; F15.20 Other stimulant dependence, uncomplicated; G89.29 Other chronic pain; K04.7 Periapical abscess without sinus; F17.200 Nicotine dependence, unspecified, uncomplicated; F43.10 Post-traumatic stress disorder, unspecified; Z59.0 Homelessness; Z79.899 Other long term (current) drug therapy
CPT/HCPCS: 36415; 80061; 82607; 83036; 84402; 85007; 85025; 87081; Z7610

== ENCOUNTER 2020-07-06 19:12 | Emergency (ER) | payer OTHER ==
[~2020-07-06] VITALS: Ht 188 cm; Wt 89.8 kg
[~2020-07-06 19:12] MED LIST changes: +AMOX-580 PO; +ANBESOL MM; +CLON0.5T4 PO; +HYDR50TA65 PO; -IBUP-1984 PO; +LISD50CA3 PO; +MELA10TA2 PO; +NICO-687 TD; +OLAN5TAB26 PO; +TEST200V10 IM; +amoxicillin PO
[2020-07-06 19:29] VITALS: BP 114/76
[2020-07-06] MEDS ORDERED: normal saline 1000ML IV soln IVB ONE (20:05)
[2020-07-06] MEDS ORDERED: acetaminophen 325mg tablet PO ONE (20:05)
--- NOTE | 2020-07-06 20:18 | NUR ---
WIRE WEB WORKER CALLED BACK AT [address] IN
[2020-07-06 20:44] LABS: BASOPHILS % (AUTO) 0.5 % (0-1); EOSINOPHILS # (AUTO) 0.3 X10'3 (0-0.9); EOSINOPHILS % (AUTO) 4.5 % (0-6); HEMATOCRIT 49.1 % (42.0-52.0); HEMOGLOBIN 16.9 g/dl (14.0-17.9); LYMPHOCYTES # (AUTO) 1.1 X10'3 (1.1-4.8); LYMPHOCYTES % (AUTO) 18.4 % (21-51); MEAN CORPUSCULAR HEMOGLOBIN 30.8 PG (27.0-31.0); MEAN CORPUSCULAR HGB CONC 34.5 g/dL (33.0-36.5); MEAN CORPUSCULAR VOLUME 89.4 FL (78-98); MONOCYTES # (AUTO) 0.6 X10'3 (0-0.9); MONOCYTES % (AUTO) 10.4 % (2-12); NEUTROPHILS # (AUTO) 3.9 X10'3 (1.8-7.7); NEUTROPHILS % (AUTO) 66.2 % (42-75); PLATELET COUNT 171 X10'3 (140-440); RED BLOOD COUNT 5.49 X10'6 (4.70-6.10); RED CELL DISTRIBUTION WIDTH 13.2 % (11.5-14.5); WHITE BLOOD COUNT 5.9 X10'3 (4.5-11.0)
[2020-07-06 20:49] LABS: PARTIAL THROMBOPLASTIN TIME 26 SECONDS (22-32)
[2020-07-06 21:02] LABS: ALANINE AMINOTRANSFERASE 34 U/L (12-78); ALBUMIN 4.2 G/DL (3.4-5.0); ALBUMIN/GLOBULIN RATIO 1.1 (1.1-1.5); ALKALINE PHOSPHATASE 105 IU/L (46-116); ANION GAP 7 (8-16); ASPARTATE AMINO TRANSFERASE 17 U/L (10-37); BILIRUBIN,TOTAL 0.7 MG/DL (0.1-1.0); BLOOD UREA NITROGEN 24 MG/DL (7-18); BUN/CREATININE RATIO 20.3 (5.4-32.0); CALCIUM 8.7 MG/DL (8.5-10.1); CHLORIDE 101 MMOL/L (99-107); CREATININE 1.18 MG/DL (0.60-1.10); GLUCOSE 98 MG/DL (70-104); POTASSIUM 4.1 MMOL/L (3.5-5.1); SODIUM 138 MMOL/L (135-145); TOTAL CARBON DIOXIDE 30.2 MMOL/L (24-32); TOTAL PROTEIN 8.1 G/DL (6.4-8.2); eGFR 69 ML/MIN
--- NOTE | 2020-07-06 21:02 | NUR ---
vascular at bedside
[2020-07-07] MEDS ORDERED: SULF1TAB49 PO (21:23)
== END 2020-07-06 21:46 | disposition left against medical advice (07) ==
LOC: ER 19:12
DX: L03.115 Cellulitis of right lower limb (principal); M79.661 Pain in right lower leg; R10.84 Generalized abdominal pain; F32.9 Major depressive disorder, single episode, unspecified; F17.200 Nicotine dependence, unspecified, uncomplicated; Z86.718 Personal history of other venous thrombosis and embolism; Z72.89 Other problems related to lifestyle; Z88.1 Allergy status to other antibiotic agents; Z79.2 Long term (current) use of antibiotics; Z79.899 Other long term (current) drug therapy
CPT/HCPCS: 36415; 71045; 80053; 83605; 85025; 85610; 85730; 87040; 93005; 93971; 99285

== ENCOUNTER 2020-07-07 19:11 | Emergency (ER) | payer OTHER ==
[~2020-07-07] VITALS: Ht 188 cm; Wt 91.9 kg
--- NOTE | 2020-07-07 20:19 | NUR ---
PT STATES HIS PLAN FOR SUICIDE IS TO "GO IN FRONT OF A SEMI TRUCK"
[2020-07-07 20:21] LABS: BASOPHILS % (AUTO) 0.8 % (0-1); EOSINOPHILS # (AUTO) 0.2 X10'3 (0-0.9); EOSINOPHILS % (AUTO) 5.2 % (0-6); HEMATOCRIT 42.8 % (42.0-52.0); HEMOGLOBIN 14.8 g/dl (14.0-17.9); LYMPHOCYTES # (AUTO) 1.1 X10'3 (1.1-4.8); MEAN CORPUSCULAR HEMOGLOBIN 30.8 PG (27.0-31.0); MEAN CORPUSCULAR HGB CONC 34.6 g/dL (33.0-36.5); MEAN CORPUSCULAR VOLUME 88.9 FL (78-98); MONOCYTES # (AUTO) 0.7 X10'3 (0-0.9); NEUTROPHILS # (AUTO) 1.3 X10'3 (1.8-7.7); PLATELET COUNT 156 X10'3 (140-440); RED BLOOD COUNT 4.81 X10'6 (4.70-6.10); RED CELL DISTRIBUTION WIDTH 12.9 % (11.5-14.5); WHITE BLOOD COUNT 3.3 X10'3 (4.5-11.0)
[2020-07-07 20:31] LABS: ALANINE AMINOTRANSFERASE 26 U/L (12-78); ALBUMIN/GLOBULIN RATIO 1.1 (1.1-1.5); ALKALINE PHOSPHATASE 86 IU/L (46-116); ANION GAP 9 (8-16); ASPARTATE AMINO TRANSFERASE 15 U/L (10-37); BILIRUBIN,TOTAL 1.2 MG/DL (0.1-1.0); BLOOD UREA NITROGEN 19 MG/DL (7-18); BUN/CREATININE RATIO 15.2 (5.4-32.0); CALCIUM 8.8 MG/DL (8.5-10.1); CHLORIDE 100 MMOL/L (99-107); CREATININE 1.25 MG/DL (0.60-1.10); ETHANOL < 0.010 GM/DL (0.0-0.010); GLUCOSE 96 MG/DL (70-104); POTASSIUM 3.8 MMOL/L (3.5-5.1); SODIUM 136 MMOL/L (135-145); TOTAL CARBON DIOXIDE 26.6 MMOL/L (24-32); TOTAL PROTEIN 7.7 G/DL (6.4-8.2); eGFR 64 ML/MIN
[2020-07-07 20:32] LABS: ACETAMINOPHEN < 2.0 UG/ML (10-30)
[2020-07-07 20:48] LABS: PLATELET ESTIMATE NORMAL; TOTAL CELLS COUNTED 100
[2020-07-07] MEDS ORDERED: SULF1TAB49 PO (21:23)
--- NOTE | 2020-07-07 21:26 | NUR ---
poison control called about pt taking 50 bendryl he says he took them around 1900
--- NOTE | 2020-07-07 21:27 | NUR ---
clara from poison control, monitor for tachycardia, lethergy, qrs widening more 100-120 then use sodium bicarb, take ekg. monitor for 6 hours from ingestion. use seizure precautions. Get cmp, tylenol and aspirin and tox screen.
--- NOTE | 2020-07-07 21:48 | NUR ---
requested a ua pt unable to give at this time, gave pt some water to drink
--- NOTE | 2020-07-07 22:42 | NUR ---
PT HAS BEEN PLACED IN GREEN SCRUBS, BELONGINGS SECURED OUTSIDE ROOM, ROOM CLEANED FOR SAFETY
[2020-07-07 23:15] LABS: URINE AMPHETAMINE SCREEN NEGATIVE (Neg); URINE BARBITUATE SCREEN NEGATIVE (Neg); URINE BENZODIAZEPINES SCREEN NEGATIVE (Neg); URINE CANNABINOID SCREEN POSITIVE (Neg); URINE COCAINE SCREEN NEGATIVE (Neg); URINE METHADONE SCREEN NEGATIVE (Neg); URINE OPIATE SCREEN NEGATIVE (Neg); URINE PHENCYCLIDINE SCREEN NEGATIVE (Neg)
--- NOTE | 2020-07-07 23:37 | NUR ---
poison control called back and were updated on pt, no chjange in behavior or condition, posion control stated that pt is ok to not be monitoried any more at this point
--- NOTE | 2020-07-08 02:22 | NUR ---
PT ASLEEP, RESP EVEN AND UNLABORED, SITTER OUTSIDE THE ROOM.
[2020-07-08] MEDS ORDERED: ondansetron 4mg rapidly disintigrating tab PO ONE (05:35)
--- NOTE | 2020-07-08 07:30 | NUR ---
pt laying in bed ,no distress noted rr wnl.mali sanchez at bedside,will cont to monitor.
[2020-07-08] MEDS: sulfamethoxazole/trimethoprim DS (800/160mg) tablet PO SCH ×3 (09:28→21:56)
--- NOTE | 2020-07-08 09:36 | NUR ---
pt medicated ,physcical assessment done,pt working on his breakfast tray,will cont to monitor.mali nunez keeping close eye on pt.
[2020-07-08] MEDS ORDERED: normal saline 1000ML IV soln IVB ONE (14:30)
[2020-07-08] MEDS ORDERED: GABA600T13 PO (16:16)
[2020-07-08] MEDS ORDERED: BACDS PO (16:23)
[2020-07-08] MEDS ORDERED: DEXT5TAB31 PO (16:23)
--- NOTE | 2020-07-08 16:55 | NUR ---
Patient sleeping on right side. No distress observed. Continue to monitor.
[2020-07-08] MEDS ORDERED: DOXY-224 PO (17:54)
[2020-07-08] MEDS ORDERED: LISD50CA3 PO (17:54)
[2020-07-08] MEDS ORDERED: CLON0.5T4 PO (17:54)
[2020-07-08] MEDS ORDERED: CLON0.5T23 PO (18:03)
[2020-07-08] MEDS ORDERED: ondansetron 4mg rapidly disintigrating tab PO PRN (18:15)
--- NOTE | 2020-07-08 19:02 | NUR ---
Received report and assumed care of patient sleeping in supine position. No s/s of sistress.
--- NOTE | 2020-07-08 20:07 | NUR ---
The patient continues to sleep in supine position without s/s of distress.
[2020-07-08] MEDS: lactobacillus rhamnosus 10,000 MMU CELLS/CAPSULE PO SCH (21:55)
[2020-07-08] MEDS: clonazePAM 0.5mg tablet PO SCH (21:55)
[2020-07-08] MEDS: gabapentin 300mg capsule PO SCH (21:56)
[2020-07-08] MEDS: buprenorphine/naloxone 8MG-2MG SUBlingual film SL SCH (21:57)
--- NOTE | 2020-07-08 22:51 | NUR ---
Patient awake in bed, lying in supine position.
--- NOTE | 2020-07-09 01:25 | NUR ---
Patient is sleeping on his left side. Breathing unlabored. No s/s of distress.
--- NOTE | 2020-07-09 04:07 | NUR ---
The patient is asleep on his left side. No s/s of distress.
--- NOTE | 2020-07-09 04:43 | NUR ---
PT SLEEPING SUPINE RESP EVEN AND UNLABORED. PT IS IN THE DIRECT LINE OF SIGHT OF NURSING STAFF. WILL CONTINUE TO MONITOR AND REASSESS
--- NOTE | 2020-07-09 06:45 | NUR ---
Patient sleeping supine. No distress observed. Continue to monitor.
[2020-07-09] MEDS ORDERED: non-formulary drug (Lisdexamfetamine Dimesylate (Vyvanse) 1 CAP) PO SCH (08:00)
[2020-07-09] MEDS: sulfamethoxazole/trimethoprim DS (800/160mg) tablet PO SCH ×4 (08:00→20:32)
[2020-07-09] MEDS: DOXYCYCLINE 100MG CAPSULE PO SCH (08:00)
--- NOTE | 2020-07-09 08:15 | NUR ---
Patient eating breakfast. No distress observed. Continue to monitor.
[2020-07-09] MEDS: dextroamphetamine/amphetamine 5mg tablet PO SCH (08:54)
[2020-07-09] MEDS: clonazePAM 0.5mg tablet PO SCH ×2 (08:55→20:31)
[2020-07-09] MEDS: gabapentin 300mg capsule PO SCH ×3 (08:55→20:31)
[2020-07-09] MEDS: buprenorphine/naloxone 8MG-2MG SUBlingual film SL SCH ×3 (08:56→20:32)
[2020-07-09] MEDS: lactobacillus rhamnosus 10,000 MMU CELLS/CAPSULE PO SCH ×2 (08:56→20:36)
[2020-07-09] MEDS: nicotine 21mg patch - 24 hr TD SCH (09:59)
--- NOTE | 2020-07-09 10:05 | NUR ---
Patient sleeping on right side. No distress observed. Continue to monitor.
--- NOTE | 2020-07-09 11:50 | NUR ---
Patient ambulatory to BR, steady gait. No distress observed. Continue to monitor.
--- NOTE | 2020-07-09 13:57 | NUR ---
RN gave patient his mid-day meds. Patient asked about his Vyvance. RN explained that they would not approve both the Adderall and the Vyvance. Patient states he would have rather had the Vyvance. RN advised patient that RN does not make that decision. Continue to monitor.
--- NOTE | 2020-07-09 15:30 | NUR ---
Patient sleeping. No distress observed. Continue to monitor.
--- NOTE | 2020-07-09 17:10 | NUR ---
Patient sleeping on right side. No distress observed. continue to monitor.
--- NOTE | 2020-07-09 19:38 | NUR ---
Pt up ambulated to BR independantly x1 other than that has been in bed sleeping.
--- NOTE | 2020-07-09 21:23 | NUR ---
Woke up for meds. Request snack asleep before he finished snack.
--- NOTE | 2020-07-09 21:47 | NUR ---
Pt awake requested a different snack. Fell back to sleep.
[2020-07-09] MEDS: magnesium hydroxide 30ml (MOM) UD suspension PO PRN (23:40)
--- NOTE | 2020-07-09 23:43 | NUR ---
Pt woke up c/o constipation causing cramps. MOM ordered and given along with 2 prune juices. Pt back to sleep.
--- NOTE | 2020-07-10 01:55 | NUR ---
Ambulated independantly to BR. No BM per pt. Linen change pt had spilled prune juice. Back to sleep.
--- NOTE | 2020-07-10 07:00 | NUR ---
pt is sleeping
[2020-07-10] MEDS: sulfamethoxazole/trimethoprim DS (800/160mg) tablet PO SCH ×4 (08:00→19:06)
--- NOTE | 2020-07-10 08:00 | NUR ---
pt is sleeping
[2020-07-10] MEDS: DOXYCYCLINE 100MG CAPSULE PO SCH (08:15)
[2020-07-10] MEDS: lactobacillus rhamnosus 10,000 MMU CELLS/CAPSULE PO SCH ×2 (08:15→19:06)
[2020-07-10] MEDS: clonazePAM 0.5mg tablet PO SCH ×2 (08:15→19:06)
[2020-07-10] MEDS: buprenorphine/naloxone 8MG-2MG SUBlingual film SL SCH ×3 (08:15→20:11)
[2020-07-10] MEDS: gabapentin 300mg capsule PO SCH ×3 (08:15→20:12)
[2020-07-10] MEDS: nicotine 21mg patch - 24 hr TD SCH (08:15)
[2020-07-10] MEDS: dextroamphetamine/amphetamine 5mg tablet PO SCH (08:18)
--- NOTE | 2020-07-10 09:00 | NUR ---
pt is sleeping
--- NOTE | 2020-07-10 10:05 | NUR ---
Breaking primary RN, pt is laying on his left side, eyes closed, regular breathing observed, brenda continue to monitor
--- NOTE | 2020-07-10 10:28 | NUR ---
pt is sleeping
--- NOTE | 2020-07-10 11:00 | NUR ---
pt is resting.
--- NOTE | 2020-07-10 12:00 | NUR ---
pt is sleeping
--- NOTE | 2020-07-10 13:00 | NUR ---
pt is sleeping
--- NOTE | 2020-07-10 14:00 | NUR ---
pt is sleeping
--- NOTE | 2020-07-10 15:00 | NUR ---
pt is sleeping
--- NOTE | 2020-07-10 16:00 | NUR ---
pt is sleeping
--- NOTE | 2020-07-10 17:00 | NUR ---
pt is sleeping
[2020-07-10] MEDS: magnesium hydroxide 30ml (MOM) UD suspension PO PRN (20:15)
[2020-07-10] MEDS ORDERED: zolpidem 5mg tablet PO SCH (21:00)
--- NOTE | 2020-07-11 07:00 | NUR ---
Pt. got into verbal altercation with another patient. Pt. making threats. Staff had to come in between patients. RN spoke with pt. and pt. states, "If he's making threats I am going to defend myself".
[2020-07-11] MEDS: buprenorphine/naloxone 8MG-2MG SUBlingual film SL SCH ×2 (07:22→13:40)
[2020-07-11] MEDS: gabapentin 300mg capsule PO SCH ×2 (07:23→13:39)
[2020-07-11] MEDS: lactobacillus rhamnosus 10,000 MMU CELLS/CAPSULE PO SCH (07:23)
[2020-07-11] MEDS: DOXYCYCLINE 100MG CAPSULE PO SCH (07:23)
[2020-07-11] MEDS: dextroamphetamine/amphetamine 5mg tablet PO SCH (07:23)
[2020-07-11] MEDS: clonazePAM 0.5mg tablet PO SCH (07:23)
[2020-07-11] MEDS: sulfamethoxazole/trimethoprim DS (800/160mg) tablet PO SCH ×2 (07:24)
[2020-07-11] MEDS: nicotine 21mg patch - 24 hr TD SCH (07:26)
--- NOTE | 2020-07-11 07:40 | NUR ---
Pt. continues to have verbal altercations with another male peer. Staff must intervene often. Pt. states, "He's the one making threats against me, I'm not just gonna sit here and take it". RN received order for PRN ativan 2mg po. Pt. took medication voluntarily.
[2020-07-11] MEDS: LORazepam 1 MG tablet PO PRN ×2 (07:50→17:30)
--- NOTE | 2020-07-11 08:00 | NUR ---
1:1 interview done at bedside. Pt. reports suicidal ideation without a plan. Pt. reports seeing "shadows" and hearing voices "sometimes". Pt. denies current A/V hallucinations as well as HI. Pt. denies any previous suicide attempts.
--- NOTE | 2020-07-11 08:50 | NUR ---
sent the RN on a 15 min break, the patient was up sitting in a chair watching a movie with another patient. He was asking for a hot compress for an abscess on his right outer part of the webb area. One of the tech's gave him a warm wash cloth. The patient's respirations appeared normal and he was not in any distress at this time.
--- NOTE | 2020-07-11 09:08 | NUR ---
notified Dr. Nunes of the right leg abscess that the patient is already on antibiotics for that is very red and the staff in overflow that have been there for a few days is reporting that "it is more red". Dr. Nunes thanked me for notifying him and that the patient should "continue to take his antibiotics".
--- NOTE | 2020-07-11 10:00 | NUR ---
Pt. doing performing hiegyne in bathroom.
[2020-07-11] MEDS: magnesium hydroxide 30ml (MOM) UD suspension PO PRN ×2 (10:49→17:54)
--- NOTE | 2020-07-11 12:00 | NUR ---
Pt. laying down in bed in supine position. Pt. c/o of nausea. RN left message for provider and awaiting call back.
--- NOTE | 2020-07-11 14:00 | NUR ---
Pt. awake and laying in bed in supine position. Pt. in no apparent distres..
--- NOTE | 2020-07-11 16:00 | NUR ---
Pt. asleep in bed on left side. Normal R&R of respiration observed. Pt. in no apparent distress.
--- NOTE | 2020-07-11 17:45 | NUR ---
Pt.'s right leg wound looked at by provider and per provider it looks good. Pt. assessed by [facility] social services coordinator and pt. taken off of 5150 and is good to discharge. Pt. reports he called his girlfriend to pick him up. Pt. reports anxiety and requested anxiolytic. Pt. given Ativan 2mg po. Pt. denies SI/HI, A/V hallucinations.
--- NOTE | 2020-07-11 17:58 | NUR ---
Pt. ate his dinner. RN went over discharge paper work. Pt. verbalized understanding of discharge plan and pt. signed all papers. Pt. reports he will make appointment with his psychiatrist tomorrow. Pt. denies SI/HI, A/V hallucinations.
[2020-07-11 18:04] VITALS: BP 130/85
== END 2020-07-11 18:05 | disposition home or self-care (01) ==
LOC: ER 19:12
DX: T45.0X2A Poisoning by antiallergic and antiemetic drugs, intentional self-harm, initial encounter (principal); Z20.828 Contact with and (suspected) exposure to other viral communicable diseases; L03.115 Cellulitis of right lower limb; F32.9 Major depressive disorder, single episode, unspecified; F17.200 Nicotine dependence, unspecified, uncomplicated; Z86.718 Personal history of other venous thrombosis and embolism; Z85.6 Personal history of leukemia; Z72.89 Other problems related to lifestyle; Z88.8 Allergy status to other drugs, medicaments and biological substances; Z79.899 Other long term (current) drug therapy; Y92.89 Other specified places as the place of occurrence of the external cause
CPT/HCPCS: 36415; 80053; 80305; 80320; 80329; 85007; 85025; 87635; 93005; 99285; J7030

== ENCOUNTER 2020-07-31 07:24 | Emergency (ER) | payer OTHER ==
[~2020-07-31] VITALS: Ht 188 cm; Wt 88.8 kg
[~2020-07-31 07:24] MED LIST changes: -AMOX-580 PO; -ANBESOL MM; +BACDS PO; +CLON0.5T23 PO; -CLON0.5T4 PO; +DEXT5TAB31 PO; +DOXY-224 PO; -HYDR50TA65 PO; -LISD50CA3 PO; -MELA10TA2 PO; -NICO-687 TD; -OLAN5TAB26 PO; -TEST200V10 IM; -amoxicillin PO
[2020-07-31 07:32] VITALS: BP 123/101
[2020-08-01] MEDS ORDERED: NALO4SPR NS (16:17)
== END 2020-07-31 07:45 | disposition left against medical advice (07) ==
LOC: ER 07:26
DX: R10.9 Unspecified abdominal pain (principal); Z53.21 Procedure and treatment not carried out due to patient leaving prior to being seen by health care provider

== ENCOUNTER 2020-08-01 11:32 | Emergency (ER) | payer OTHER ==
[~2020-08-01] VITALS: Ht 188 cm; Wt 88.7 kg
[2020-08-01] MEDS ORDERED: buprenorphine/naloxone 8MG-2MG SUBlingual film SL STA (14:45)
[2020-08-01] MEDS ORDERED: dicyclomine 10 MG capsule PO ONE (14:45)
[2020-08-01] MEDS ORDERED: mag hydrox/Alum hydrox/simeth 30ml oral suspension PO ONE (14:45)
[2020-08-01 15:14] LABS: BASOPHILS % (AUTO) 1.5 % (0-1); EOSINOPHILS # (AUTO) 0.3 X10'3 (0-0.9); EOSINOPHILS % (AUTO) 11.9 % (0-6); HEMATOCRIT 46.8 % (42.0-52.0); HEMOGLOBIN 15.9 g/dl (14.0-17.9); LYMPHOCYTES # (AUTO) 1.2 X10'3 (1.1-4.8); LYMPHOCYTES % (AUTO) 48.6 % (21-51); MEAN CORPUSCULAR HEMOGLOBIN 29.8 PG (27.0-31.0); MEAN CORPUSCULAR VOLUME 87.6 FL (78-98); MEAN PLATELET VOLUME 8.1 FL (7.4-10.4); MONOCYTES # (AUTO) 0.6 X10'3 (0-0.9); MONOCYTES % (AUTO) 22.9 % (2-12); NEUTROPHILS # (AUTO) 0.4 X10'3 (1.8-7.7); NEUTROPHILS % (AUTO) 15.1 % (42-75); PLATELET COUNT 176 X10'3 (140-440); RED BLOOD COUNT 5.35 X10'6 (4.70-6.10); RED CELL DISTRIBUTION WIDTH 13.5 % (11.5-14.5); WHITE BLOOD COUNT 2.5 X10'3 (4.5-11.0)
[2020-08-01 15:28] LABS: ALANINE AMINOTRANSFERASE 23 U/L (12-78); ALBUMIN 3.9 G/DL (3.4-5.0); ALBUMIN/GLOBULIN RATIO 1.1 (1.1-1.5); ALKALINE PHOSPHATASE 97 IU/L (46-116); ANION GAP 9 (8-16); ASPARTATE AMINO TRANSFERASE 23 U/L (10-37); BILIRUBIN,TOTAL 0.8 MG/DL (0.1-1.0); BLOOD UREA NITROGEN 18 MG/DL (7-18); BUN/CREATININE RATIO 18.8 (5.4-32.0); CALCIUM 9.1 MG/DL (8.5-10.1); CHLORIDE 101 MMOL/L (99-107); CREATININE 0.96 MG/DL (0.60-1.10); GLUCOSE 90 MG/DL (70-104); LIPASE < 50 U/L (73-393); POTASSIUM 3.9 MMOL/L (3.5-5.1); SODIUM 136 MMOL/L (135-145); TOTAL CARBON DIOXIDE 25.8 MMOL/L (24-32); TOTAL PROTEIN 7.6 G/DL (6.4-8.2); eGFR 87 ML/MIN
[2020-08-01 15:39] LABS: TOTAL CELLS COUNTED 100
[2020-08-01 15:41] LABS: PLATELET ESTIMATE NORMAL
[2020-08-01] MEDS ORDERED: NALO4SPR NS (16:17)
[2020-08-01 16:31] VITALS: BP 111/45
--- NOTE | 2020-08-01 17:38 | NUR ---
PER ELIZABETH NGUYEN ,NO NEED FOR URINE SPECIMEN ,CHECK FOR PO CHALENGE ,IF PT CAN DRINK OKAY WITH N/V ,PT CAN BE D/C.
== END 2020-08-01 18:13 | disposition home or self-care (01) ==
LOC: ER 11:33
DX: R10.84 Generalized abdominal pain (principal); R30.0 Dysuria; F32.9 Major depressive disorder, single episode, unspecified; F41.9 Anxiety disorder, unspecified; Z86.718 Personal history of other venous thrombosis and embolism; F15.90 Other stimulant use, unspecified, uncomplicated; Z72.89 Other problems related to lifestyle; Z88.1 Allergy status to other antibiotic agents; Z79.899 Other long term (current) drug therapy
CPT/HCPCS: 80053; 83690; 85007; 85025; 99284

== ENCOUNTER 2020-08-30 21:10 | Emergency (ER) | payer OTHER ==
[~2020-08-30 21:10] MED LIST changes: -BACDS PO; +NALO4SPR NS; +SULF1TAB45 PO
--- NOTE | 2020-08-30 21:19 | NUR ---
PT WAS CALLED IN FOR EKG IMMEDIATELY UPON REGISTERING, HAD EKG DONE. AFTER EKG DONE, PT STATED HE WAS NOT GOING TO WAIT AND LEFT THE ER BEFORE TRIAGE COMPLETED.
[2020-08-31] MEDS ORDERED: PRED20TA PO (00:46)
[2020-08-31] MEDS ORDERED: ALBU8.5H8 INH (00:46)
== END 2020-08-30 21:19 | disposition left against medical advice (07) ==
LOC: ER 21:11
DX: R07.89 Other chest pain (principal); Z53.21 Procedure and treatment not carried out due to patient leaving prior to being seen by health care provider

== ENCOUNTER 2020-08-30 23:17 | Emergency (ER) | payer OTHER ==
[~2020-08-30] VITALS: Ht 188 cm; Wt 90.9 kg
[2020-08-31 00:24] LABS: BASOPHILS % (AUTO) 0.5 % (0-1); EOSINOPHILS # (AUTO) 0.1 X10'3 (0-0.9); EOSINOPHILS % (AUTO) 4.1 % (0-6); HEMATOCRIT 44.5 % (42.0-52.0); HEMOGLOBIN 15.1 g/dl (14.0-17.9); LYMPHOCYTES # (AUTO) 1.4 X10'3 (1.1-4.8); LYMPHOCYTES % (AUTO) 42.2 % (21-51); MEAN CORPUSCULAR HEMOGLOBIN 29.3 PG (27.0-31.0); MEAN CORPUSCULAR HGB CONC 33.8 g/dL (33.0-36.5); MEAN CORPUSCULAR VOLUME 86.8 FL (78-98); MEAN PLATELET VOLUME 7.7 FL (7.4-10.4); MONOCYTES # (AUTO) 0.7 X10'3 (0-0.9); MONOCYTES % (AUTO) 19.9 % (2-12); NEUTROPHILS # (AUTO) 1.1 X10'3 (1.8-7.7); NEUTROPHILS % (AUTO) 33.3 % (42-75); PLATELET COUNT 176 X10'3 (140-440); RED BLOOD COUNT 5.13 X10'6 (4.70-6.10); RED CELL DISTRIBUTION WIDTH 13.7 % (11.5-14.5); WHITE BLOOD COUNT 3.4 X10'3 (4.5-11.0)
[2020-08-31 00:36] LABS: ALANINE AMINOTRANSFERASE 21 U/L (12-78); ALBUMIN 3.8 G/DL (3.4-5.0); ALKALINE PHOSPHATASE 84 IU/L (46-116); ANION GAP 7 (8-16); ASPARTATE AMINO TRANSFERASE 24 U/L (10-37); BILIRUBIN,TOTAL 0.8 MG/DL (0.1-1.0); BLOOD UREA NITROGEN 14 MG/DL (7-18); BUN/CREATININE RATIO 12.4 (5.4-32.0); CALCIUM 9.2 MG/DL (8.5-10.1); CHLORIDE 101 MMOL/L (99-107); CREATININE 1.13 MG/DL (0.60-1.10); GLUCOSE 117 MG/DL (70-104); SODIUM 136 MMOL/L (135-145); TOTAL CARBON DIOXIDE 28.1 MMOL/L (24-32); TOTAL PROTEIN 7.7 G/DL (6.4-8.2); eGFR 72 ML/MIN
[2020-08-31] MEDS ORDERED: ALBU8.5H8 INH (00:46)
[2020-08-31] MEDS ORDERED: PRED20TA PO (00:46)
[2020-08-31 01:12] VITALS: BP 112/70
[2020-08-31 01:22] LABS: TOTAL CELLS COUNTED 100
[2020-08-31 01:24] LABS: PLATELET ESTIMATE NORMAL
== END 2020-08-31 01:17 | disposition home or self-care (01) ==
LOC: ER 23:17
DX: Z02.89 Encounter for other administrative examinations (principal); R06.2 Wheezing; R06.02 Shortness of breath; R07.89 Other chest pain; F32.9 Major depressive disorder, single episode, unspecified; F17.200 Nicotine dependence, unspecified, uncomplicated; F15.90 Other stimulant use, unspecified, uncomplicated; F11.90 Opioid use, unspecified, uncomplicated; Z86.718 Personal history of other venous thrombosis and embolism; Z72.89 Other problems related to lifestyle; Z88.1 Allergy status to other antibiotic agents; Z79.2 Long term (current) use of antibiotics; Z79.899 Other long term (current) drug therapy
CPT/HCPCS: 71045; 80053; 83735; 83880; 84484; 85007; 85025; 93005; 99285

== ENCOUNTER 2020-08-31 23:06 | Emergency (ER) | payer OTHER ==
[~2020-08-31] VITALS: Ht 188 cm; Wt 84.1 kg
[~2020-08-31 23:06] MED LIST changes: +ALBU8.5H8 INH; +PRED20TA PO
[2020-08-31 23:15] VITALS: BP 137/76
--- NOTE | 2020-09-01 02:19 | NUR ---
pt seen and evaluated by md and no nurse asst done
== END 2020-09-01 02:21 | disposition home or self-care (01) ==
LOC: ER 23:07
DX: F41.9 Anxiety disorder, unspecified (principal); R07.89 Other chest pain; R10.84 Generalized abdominal pain; F32.9 Major depressive disorder, single episode, unspecified; F15.90 Other stimulant use, unspecified, uncomplicated; F11.90 Opioid use, unspecified, uncomplicated; Z86.718 Personal history of other venous thrombosis and embolism; Z72.89 Other problems related to lifestyle; Z88.1 Allergy status to other antibiotic agents; Z79.2 Long term (current) use of antibiotics; Z79.899 Other long term (current) drug therapy
CPT/HCPCS: 93005; 99283

== ENCOUNTER 2021-12-10 10:58 | Emergency (ER) | payer SELFPAY ==
[~2021-12-10] VITALS: Ht 188 cm; Wt 88.6 kg
[~2021-12-10 10:58] MED LIST changes: +ALBU8.5H17 INH; -ALBU8.5H8 INH; -PRED20TA PO
[2021-12-10 11:01] VITALS: BP 126/87
== END 2021-12-10 21:46 | disposition left against medical advice (07) ==
LOC: ER 10:58
DX: R45.851 Suicidal ideations (principal); Z53.21 Procedure and treatment not carried out due to patient leaving prior to being seen by health care provider

== ENCOUNTER 2022-02-10 00:43 | Emergency (ER) | payer SELFPAY ==
[~2022-02-10] VITALS: Ht 185.4 cm; Wt 86.4 kg
[2022-02-10 00:58] VITALS: BP 119/73
== END 2022-02-10 04:33 | disposition left against medical advice (07) ==
LOC: ER 00:43
DX: L23.7 Allergic contact dermatitis due to plants, except food (principal); Z53.21 Procedure and treatment not carried out due to patient leaving prior to being seen by health care provider

== ENCOUNTER 2022-09-01 03:18 | Emergency (ER) | payer MEDICAID ==
[~2022-09-01] VITALS: Ht 182.9 cm; Wt 75.0 kg
[~2022-09-01 03:18] MED LIST changes: +ALBU18HF2 INH; -ALBU8.5H17 INH; -CLON0.5T23 PO; -DEXT5TAB31 PO; -DOXY-224 PO; +GABA-530 PO; -GABA600T13 PO; -NALO4SPR NS; -ONDA-103 PO; +QUET-1 PO
[2022-09-01 04:42] VITALS: BP 127/74
== END 2022-09-01 06:23 | disposition left against medical advice (07) ==
LOC: ER 03:18
DX: F15.10 Other stimulant abuse, uncomplicated (principal); Z53.21 Procedure and treatment not carried out due to patient leaving prior to being seen by health care provider
CPT/HCPCS: 99281

== ENCOUNTER 2022-11-25 16:17 | Emergency (ER) | payer MEDICAID ==
[~2022-11-25 16:17] MED LIST changes: +IBUP-1985 PO; +MELA3TAB39 PO; -SULF1TAB45 PO
== END 2022-11-25 20:11 | disposition left against medical advice (07) ==
LOC: ER 16:17
DX: Z76.0 Encounter for issue of repeat prescription (principal); Z53.21 Procedure and treatment not carried out due to patient leaving prior to being seen by health care provider
CPT/HCPCS: 99281

== ENCOUNTER 2022-12-06 12:17 | Emergency (ER) | payer MEDICAID ==
[~2022-12-06] VITALS: Ht 188 cm; Wt 68.2 kg
[2022-12-06 13:38] LABS: ALANINE AMINOTRANSFERASE 50 U/L (12-78); ALBUMIN 3.8 G/DL (3.4-5.0); ALKALINE PHOSPHATASE 96 IU/L (46-116); ANION GAP 12 (8-16); ASPARTATE AMINO TRANSFERASE 22 U/L (10-37); BILIRUBIN,TOTAL 0.8 MG/DL (0.1-1.0); BLOOD UREA NITROGEN 15 MG/DL (7-18); BUN/CREATININE RATIO 15.8 (10.0-20.0); CHLORIDE 99 MMOL/L (99-107); CREATININE 0.95 MG/DL (0.60-1.10); GLUCOSE 126 MG/DL (70-104); LIPASE 104 U/L (73-393); POTASSIUM 3.7 MMOL/L (3.5-5.1); SODIUM 137 MMOL/L (135-145); TOTAL CARBON DIOXIDE 25.7 MMOL/L (24-32); TOTAL PROTEIN 7.8 G/DL (6.4-8.2); eGFR 87 ML/MIN
[2022-12-06 14:29] LABS: BASOPHILS % (AUTO) 0.4 % (0-1); EOSINOPHILS % (AUTO) 0.6 % (0-6); HEMATOCRIT 44.1 % (42.0-52.0); HEMOGLOBIN 14.9 g/dl (14.0-17.9); LYMPHOCYTES # (AUTO) 0.2 X10'3 (1.1-4.8); LYMPHOCYTES % (AUTO) 6.4 % (21-51); MEAN CORPUSCULAR HEMOGLOBIN 29.4 PG (27.0-31.0); MEAN CORPUSCULAR HGB CONC 33.7 g/dL (33.0-36.5); MEAN PLATELET VOLUME 9.6 FL (7.4-10.4); MONOCYTES # (AUTO) 0.3 X10'3 (0-0.9); MONOCYTES % (AUTO) 9.7 % (2-12); NEUTROPHILS # (AUTO) 2.9 X10'3 (1.8-7.7); NEUTROPHILS % (AUTO) 82.9 % (42-75); PLATELET COUNT 108 X10'3 (140-440); RED BLOOD COUNT 5.07 X10'6 (4.70-6.10); RED CELL DISTRIBUTION WIDTH 13.7 % (11.5-14.5); WHITE BLOOD COUNT 3.5 X10'3 (4.5-11.0)
[2022-12-06] MEDS ORDERED: diphenhydrAMINE 50 mg/ml inj IM ONE (17:35)
[2022-12-06] MEDS ORDERED: proCHLORperazine 10 MG/2 ml inj IM ONE (17:35)
[2022-12-06 18:09] LABS: ETHANOL < 0.010 GM/DL (0.0-0.010)
--- NOTE | 2022-12-06 18:50 | NUR ---
assumed care form alaina dc and then gave sbar to vanda smith
[2022-12-06 20:54] LABS: CLARITY,URINE CLEAR (Clear); COLOR,URINE YELLOW (Yellow); GLUCOSE, URINE NEGATIVE (Neg); KETONES,URINE NEGATIVE (Neg); LEUKOCYTE ESTERASE ,URINE NEGATIVE (Neg); NITRITES, URINE NEGATIVE (Neg); OCCULT BLOOD,URINE NEGATIVE (Neg); PROTEIN,URINE NEGATIVE (Neg); UROBILINOGEN,URINE 0.2 E.U/dL (0.2-1.0)
[2022-12-06 21:03] LABS: UA COLLECTION TYPE CLN CATCH MIDSTREAM
[2022-12-06 21:21] LABS: URINE AMPHETAMINE SCREEN NEGATIVE (Neg); URINE BARBITUATE SCREEN NEGATIVE (Neg); URINE BENZODIAZEPINES SCREEN NEGATIVE (Neg); URINE CANNABINOID SCREEN POSITIVE (Neg); URINE COCAINE SCREEN NEGATIVE (Neg); URINE METHADONE SCREEN NEGATIVE (Neg); URINE OPIATE SCREEN NEGATIVE (Neg); URINE PHENCYCLIDINE SCREEN NEGATIVE (Neg)
[2022-12-06] MEDS ORDERED: BUPR1FIL3 SL (21:30)
[2022-12-06] MEDS ORDERED: GABA-530 PO (21:30)
[2022-12-06] MEDS ORDERED: QUET100T34 PO ×2 (21:30→21:56)
[2022-12-06] MEDS ORDERED: QUET50TA24 PO (21:56)
--- NOTE | 2022-12-06 22:37 | NUR ---
This automotive service writer reviewed patients medications with his primary care nurse.
[2022-12-06] MEDS: gabapentin 100mg capsule PO SCH (22:40)
[2022-12-06] MEDS: quetiapine 100mg tablet PO SCH (22:42)
[2022-12-06] MEDS ORDERED: ondansetron 4mg rapidly disintigrating tab PO ONE (22:45)
[2022-12-06] MEDS: buprenorphine/naloxone 8MG-2MG SUBlingual film SL SCH (23:34)
--- NOTE | 2022-12-07 06:45 | NUR ---
Pt. awoken and transferred to bed 20 in ER OF. Pt. calm and cooperative and in no apparent distress.
--- NOTE | 2022-12-07 08:30 | NUR ---
1:1 done at bedside, pt. denies SI/HI. Pt. reports hearing voices, when asked what the voices are saying, pt. states, "Just a lot of stuff". Pt. took medications and went back to sleep.
[2022-12-07] MEDS: gabapentin 100mg capsule PO SCH ×3 (08:57→20:25)
[2022-12-07] MEDS: quetiapine 100mg tablet PO SCH ×2 (08:57→20:25)
[2022-12-07] MEDS: buprenorphine/naloxone 8MG-2MG SUBlingual film SL SCH (08:58)
--- NOTE | 2022-12-07 10:30 | NUR ---
Pt. asleep in bed in supine position. Respirations, 18, even and unlabored.
--- NOTE | 2022-12-07 12:30 | NUR ---
Pt. awake and eating lunch in his bed, however, pt. falls asleep at times while eating.
--- NOTE | 2022-12-07 14:30 | NUR ---
Pt. asleep in bed on right side. Respirations 18, even and unlabored.
[2022-12-07] MEDS: QUEtiapine 25mg tablet PO SCH (15:19)
--- NOTE | 2022-12-07 16:30 | NUR ---
Pt. asleep in bed in supine position. Respirations are 20, even and unlabored. Pt. in no apparent distress.
--- NOTE | 2022-12-07 18:30 | NUR ---
Upon turn of shift noted patient sleeping. Appears to be comfortable. Rise/fall of chest noted. Will continue to monitor.
--- NOTE | 2022-12-07 20:30 | NUR ---
Patient noted to be sleeping comfortably. Awoke patient for HS meds. Compliant with HS meds and asked for a snack. Provided snack. Assessment negative and answered questions appropriatly. Patient was awake for about 10 minutes to eat snack then went back to sleep.
--- NOTE | 2022-12-07 22:23 | NUR ---
Appears to be sleeping comfortably. No s/sx of discomfort. Will continue to monitor.
--- NOTE | 2022-12-08 00:36 | NUR ---
Transferred care to LVN. Tete
--- NOTE | 2022-12-08 02:04 | NUR ---
Pt in bed with eyes closed. No s/s od distress at this time.
--- NOTE | 2022-12-08 04:10 | NUR ---
Pt in bed with eyes closed, sleeping comfortably. No s/s od distress at this time.
--- NOTE | 2022-12-08 05:22 | NUR ---
Pt in bed with eyes closed sleeping comfortably. No s/s od distress at this time.
--- NOTE | 2022-12-08 05:40 | NUR ---
Pt slept through the night with no s/s of distress.
--- NOTE | 2022-12-08 05:52 | NUR ---
Pt awake, using restroom.
--- NOTE | 2022-12-08 06:28 | NUR ---
Took report from PRIYANKA Epstein Addendum: 12/08/22 at 0650 by PRIYANKA Took report from TIMOTHY Epstein
--- NOTE | 2022-12-08 08:14 | NUR ---
Patient appears to be sleeping comfortably. No s/s of distress at this time
[2022-12-08] MEDS: gabapentin 100mg capsule PO SCH ×3 (09:55→20:41)
[2022-12-08] MEDS: quetiapine 100mg tablet PO SCH ×2 (09:55→20:41)
[2022-12-08] MEDS: buprenorphine/naloxone 8MG-2MG SUBlingual film SL SCH (09:57)
--- NOTE | 2022-12-08 10:15 | NUR ---
Patient watching tv at this time. No s/s of distress noted at this time.
--- NOTE | 2022-12-08 12:21 | NUR ---
Patient up at side of bed eating lunch. No s/s of distress at this time.
--- NOTE | 2022-12-08 14:06 | NUR ---
Patient sleeping at this time. No s/s of distress.
[2022-12-08] MEDS: QUEtiapine 25mg tablet PO SCH (14:56)
--- NOTE | 2022-12-08 16:11 | NUR ---
Patient sleeping at this time. No s/s of distress.
--- NOTE | 2022-12-08 17:36 | NUR ---
Patient up and ambulated to the bathroom
--- NOTE | 2022-12-08 21:02 | NUR ---
In bed watching TV at this time. Sleeping untill woken up for meds. Took all meds given snack per request. Pt endorses SI and comand A/H telling him to kill himself. "Same old Shit"
--- NOTE | 2022-12-08 23:14 | NUR ---
Pt sleeping at this time.
--- NOTE | 2022-12-09 06:30 | NUR ---
Received pt. sleeping in bed, rr are even and unlabored.
--- NOTE | 2022-12-09 08:30 | NUR ---
Pt. is awake eating breakfast at this time. He was cooperative with mental health assessment, however his affect is blunted. Pt. denies any current S/I, and states, "I haven't thought about it today." He endorses a history of past suicide attempts of running in front of cars and drug use. Pt. denies any A/V/ASHBY and no delusional statements were made.
[2022-12-09] MEDS: gabapentin 100mg capsule PO SCH ×3 (08:56→20:26)
[2022-12-09] MEDS: quetiapine 100mg tablet PO SCH ×2 (08:56→20:26)
[2022-12-09] MEDS: buprenorphine/naloxone 8MG-2MG SUBlingual film SL SCH ×2 (08:57→20:25)
--- NOTE | 2022-12-09 10:32 | NUR ---
Pt. is sleeping, no s/s of distress noted.
--- NOTE | 2022-12-09 12:17 | NUR ---
Pt. up to use the bathroom at this time, able to ambulate without difficulty.
--- NOTE | 2022-12-09 13:22 | NUR ---
Met with patient in regards to substance use and to see if patient is interested in resources for treatment options. Patient in interested in medication. I talked to Ghanshyam and he will start patient on Suboxone. I will give patient information on [facility] to continue Suboxone.
--- NOTE | 2022-12-09 14:22 | NUR ---
Pt. is sitting up in bed eating a snack at this time.
[2022-12-09] MEDS: QUEtiapine 25mg tablet PO SCH (15:01)
--- NOTE | 2022-12-09 15:46 | NUR ---
Breaking RN. Pt. asleep in supine position. Respirations 18, even and unlabored.
--- NOTE | 2022-12-09 16:23 | NUR ---
Pt. is laying in bed sleeping at this time, rr are even and unlabored.
--- NOTE | 2022-12-09 18:09 | NUR ---
Pt. c/o a headache, this was endorsed to Dr. Morrissey and obtained an order for Tylenol 650mg.
[2022-12-09] MEDS ORDERED: acetaminophen 325mg tablet PO ONE (18:10)
--- NOTE | 2022-12-09 19:28 | NUR ---
Pt received lying in bed resting, he is requesting a second meal which has been ordered.
--- NOTE | 2022-12-10 00:02 | NUR ---
Pt appears to be sleeping.
--- NOTE | 2022-12-10 03:51 | NUR ---
Pt appears to be sleeping.
--- NOTE | 2022-12-10 06:44 | NUR ---
Patient is sleeping in bed. No S/S of distress noted.
[2022-12-10] MEDS: quetiapine 100mg tablet PO SCH (08:47)
[2022-12-10] MEDS: gabapentin 100mg capsule PO SCH (08:47)
[2022-12-10] MEDS: buprenorphine/naloxone 8MG-2MG SUBlingual film SL SCH (08:48)
--- NOTE | 2022-12-10 09:43 | NUR ---
[facility] here evaluating patient for discharge. Patient was given his belongings. Patient will be discharged and given a bus ticket. Patient needs to follow-up with treatment.
[2022-12-10 09:53] VITALS: BP 103/59
== END 2022-12-10 10:01 | disposition home or self-care (01) ==
LOC: ER 12:18
DX: R45.851 Suicidal ideations (principal); Z20.822 Contact with and (suspected) exposure to COVID-19
CPT/HCPCS: 36415; 80053; 80305; 80320; 81003; 83690; 84443; 85025; 87811; 96372; 99285; J0780; J1200

== ENCOUNTER 2023-10-12 12:35 | Emergency (ER) | payer MEDICAID ==
[~2023-10-12] VITALS: Ht 175.3 cm; Wt 86.4 kg
[~2023-10-12 12:35] MED LIST changes: -ALBU18HF2 INH; -IBUP-1985 PO; -MELA3TAB39 PO; +QUET100T34 PO; +QUET50TA24 PO
[2023-10-12 12:53] VITALS: BP 112/58; PULSE 81; RESP 18; TEMP 97.8; O2SAT 98
[2023-10-12] MEDS ORDERED: CLIN300C63 PO (12:55)
== END 2023-10-12 13:02 | disposition home or self-care (01) ==
LOC: ER 12:36
DX: S60.562A Insect bite (nonvenomous) of left hand, initial encounter (principal); L03.114 Cellulitis of left upper limb; W57.XXXA Bitten or stung by nonvenomous insect and other nonvenomous arthropods, initial encounter; Y93.89 Activity, other specified; Y92.89 Other specified places as the place of occurrence of the external cause; Y99.8 Other external cause status; F32.A Depression, unspecified; F20.9 Schizophrenia, unspecified; Z59.00 Homelessness unspecified; Z56.0 Unemployment, unspecified; F15.90 Other stimulant use, unspecified, uncomplicated; F11.90 Opioid use, unspecified, uncomplicated; Z88.8 Allergy status to other drugs, medicaments and biological substances; Z79.899 Other long term (current) drug therapy
CPT/HCPCS: 99283

== ENCOUNTER 2023-10-23 10:00 | Emergency (ER) | payer MEDICAID, OTHER ==
[~2023-10-23] VITALS: Ht 193 cm; Wt 83.0 kg
[~2023-10-23 10:00] MED LIST changes: +CLIN300C63 PO
[2023-10-23 10:08] VITALS: TEMP 97.7
[2023-10-23] MEDS: normal saline 1000ml 1,000 ML IV ONE (10:36)
[2023-10-23] MEDS: ondansetron/PF 4mg/2ml inj IV ONE (10:37)
[2023-10-23] MEDS: diphenhydrAMINE 50 mg/ml inj IV ONE (10:37)
[2023-10-23 10:42] LABS: BASOPHILS % (AUTO) 0.9 % (0-1); EOSINOPHILS # (AUTO) 0.1 X10'3 (0-0.9); EOSINOPHILS % (AUTO) 3.5 % (0-6); HEMATOCRIT 40.7 % (42.0-52.0); HEMOGLOBIN 13.7 g/dl (14.0-17.9); LYMPHOCYTES # (AUTO) 0.9 X10'3 (1.1-4.8); LYMPHOCYTES % (AUTO) 24.5 % (21-51); MEAN CORPUSCULAR HEMOGLOBIN 28.9 PG (27.0-31.0); MEAN CORPUSCULAR HGB CONC 33.7 g/dL (33.0-36.5); MEAN CORPUSCULAR VOLUME 85.8 FL (78-98); MEAN PLATELET VOLUME 9.1 FL (7.4-10.4); MONOCYTES # (AUTO) 0.2 X10'3 (0-0.9); MONOCYTES % (AUTO) 5.5 % (2-12); NEUTROPHILS # (AUTO) 2.5 X10'3 (1.8-7.7); NEUTROPHILS % (AUTO) 65.6 % (42-75); PLATELET COUNT 91 X10'3 (140-440); RED BLOOD COUNT 4.75 X10'6 (4.70-6.10); RED CELL DISTRIBUTION WIDTH 13.2 % (11.5-14.5); WHITE BLOOD COUNT 3.8 X10'3 (4.5-11.0)
[2023-10-23] MEDS: haloperidol lactate 5mg/ml inj IM ONE (10:49)
[2023-10-23 10:51] LABS: ALANINE AMINOTRANSFERASE 27 U/L (12-78); ALBUMIN 3.7 G/DL (3.4-5.0); ALBUMIN/GLOBULIN RATIO 0.8 (1.1-1.5); ALKALINE PHOSPHATASE 87 IU/L (46-116); ANION GAP 8 (8-16); ASPARTATE AMINO TRANSFERASE 27 U/L (10-37); BILIRUBIN,TOTAL 0.6 MG/DL (0.1-1.0); BLOOD UREA NITROGEN 15 MG/DL (7-18); CALCIUM 9.1 MG/DL (8.5-10.1); CHLORIDE 103 MMOL/L (99-107); CREATININE 0.94 MG/DL (0.60-1.10); GLUCOSE 92 MG/DL (70-104); POTASSIUM 3.7 MMOL/L (3.5-5.1); SODIUM 139 MMOL/L (135-145); TOTAL CARBON DIOXIDE 27.6 MMOL/L (24-32); TOTAL PROTEIN 8.4 G/DL (6.4-8.2); eCRCL 120 ML/MIN; eGFR 88 ML/MIN
[2023-10-23 10:54] LABS: LIPASE 83 U/L (16-77)
[2023-10-23 11:59] LABS: BILIRUBIN,URINE NEGATIVE (Neg); CLARITY,URINE CLEAR (Clear); COLOR,URINE STRAW (Yellow); GLUCOSE, URINE NEGATIVE (Neg); KETONES,URINE NEGATIVE (Neg); LEUKOCYTE ESTERASE ,URINE NEGATIVE (Neg); NITRITES, URINE NEGATIVE (Neg); OCCULT BLOOD,URINE NEGATIVE (Neg); PROTEIN,URINE NEGATIVE (Neg); UROBILINOGEN,URINE 0.2 E.U/dL (0.2-1.0)
[2023-10-23 12:01] LABS: UA COLLECTION TYPE VOIDED
[2023-10-23 15:36] VITALS: BP 151/90; PULSE 94; RESP 16; O2SAT 98
[2023-10-24] MEDS ORDERED: NO HOME MEDS (07:59)
== END 2023-10-23 15:44 | disposition home or self-care (01) ==
LOC: ER 10:01
DX: F11.23 Opioid dependence with withdrawal (principal); F31.9 Bipolar disorder, unspecified; F15.90 Other stimulant use, unspecified, uncomplicated; Z88.1 Allergy status to other antibiotic agents; Z79.899 Other long term (current) drug therapy
CPT/HCPCS: 71045; 80053; 81003; 83690; 84484; 85025; 93005; 96361; 96372; 96374; 96375; 99285; J1200; J1630; J2405; J7030

== ENCOUNTER 2023-10-24 07:49 | Emergency (ER) | payer MEDICAID, OTHER ==
[~2023-10-24] VITALS: Ht 188 cm; Wt 81.6 kg
[~2023-10-24 07:49] MED LIST changes: -CLIN300C63 PO
[2023-10-24 07:52] VITALS: BP 127/81; PULSE 69; TEMP 97.7; O2SAT 99
[2023-10-24] MEDS ORDERED: NO HOME MEDS (07:59)
[2023-10-24 08:26] VITALS: RESP 16
[2023-10-24 08:53] LABS: BILIRUBIN,URINE NEGATIVE (Neg); CLARITY,URINE CLEAR (Clear); COLOR,URINE YELLOW (Yellow); GLUCOSE, URINE NEGATIVE (Neg); KETONES,URINE TRACE mg/dl (Neg); LEUKOCYTE ESTERASE ,URINE NEGATIVE (Neg); NITRITES, URINE NEGATIVE (Neg); OCCULT BLOOD,URINE NEGATIVE (Neg); PROTEIN,URINE NEGATIVE (Neg); UROBILINOGEN,URINE 0.2 E.U/dL (0.2-1.0)
[2023-10-24 08:56] LABS: UA COLLECTION TYPE CLN CATCH MIDSTREAM
[2023-10-24 09:11] LABS: URINE AMPHETAMINE SCREEN POSITIVE (Neg); URINE BARBITUATE SCREEN NEGATIVE (Neg); URINE BENZODIAZEPINES SCREEN NEGATIVE (Neg); URINE CANNABINOID SCREEN NEGATIVE (Neg); URINE COCAINE SCREEN NEGATIVE (Neg); URINE METHADONE SCREEN NEGATIVE (Neg); URINE OPIATE SCREEN NEGATIVE (Neg); URINE PHENCYCLIDINE SCREEN NEGATIVE (Neg)
[2023-10-24 09:25] LABS: BASOPHILS % (AUTO) 0.4 % (0-1); EOSINOPHILS % (AUTO) 0.3 % (0-6); HEMATOCRIT 43.7 % (42.0-52.0); HEMOGLOBIN 14.9 g/dl (14.0-17.9); LYMPHOCYTES % (AUTO) 18.4 % (21-51); MEAN CORPUSCULAR HEMOGLOBIN 29.5 PG (27.0-31.0); MEAN CORPUSCULAR VOLUME 86.5 FL (78-98); MEAN PLATELET VOLUME 9.8 FL (7.4-10.4); MONOCYTES # (AUTO) 0.4 X10'3 (0-0.9); MONOCYTES % (AUTO) 7.2 % (2-12); NEUTROPHILS # (AUTO) 4.1 X10'3 (1.8-7.7); NEUTROPHILS % (AUTO) 73.7 % (42-75); PLATELET COUNT 117 X10'3 (140-440); RED BLOOD COUNT 5.05 X10'6 (4.70-6.10); RED CELL DISTRIBUTION WIDTH 13.4 % (11.5-14.5); WHITE BLOOD COUNT 5.6 X10'3 (4.5-11.0)
[2023-10-24 09:44] LABS: ALBUMIN 3.8 G/DL (3.4-5.0); ANION GAP 12 (8-16); BLOOD UREA NITROGEN 16 MG/DL (7-18); BUN/CREATININE RATIO 16.8 (10.0-20.0); CALCIUM 9.6 MG/DL (8.5-10.1); CHLORIDE 104 MMOL/L (99-107); CREATININE 0.95 MG/DL (0.60-1.10); GLUCOSE 102 MG/DL (70-104); POTASSIUM 3.5 MMOL/L (3.5-5.1); SODIUM 141 MMOL/L (135-145); TOTAL CARBON DIOXIDE 25.3 MMOL/L (24-32); eCRCL 117 ML/MIN; eGFR 87 ML/MIN
[2023-10-24 10:07] LABS: THYROID STIMULATING HORMONE 1.11 ulU/ml (0.34-4.50)
== END 2023-10-24 13:04 | disposition home or self-care (01) ==
LOC: ER 07:50
DX: F15.10 Other stimulant abuse, uncomplicated (principal); Z20.822 Contact with and (suspected) exposure to COVID-19; F11.20 Opioid dependence, uncomplicated; F31.9 Bipolar disorder, unspecified; Z88.1 Allergy status to other antibiotic agents; Z79.899 Other long term (current) drug therapy; Z79.2 Long term (current) use of antibiotics
CPT/HCPCS: 36415; 80048; 80305; 81003; 83690; 84443; 85025; 87811; 99284

== ENCOUNTER 2025-05-12 10:30 | Emergency (ER) | payer MEDICAID ==
[~2025-05-12] VITALS: Ht 175.3 cm; Wt 70.5 kg
[~2025-05-12 10:30] MED LIST changes: -BUPR1FIL3 SL; -GABA-530 PO; +NO HOME MEDS; -QUET-1 PO; -QUET100T34 PO; -QUET50TA24 PO
[2025-05-12 10:35] VITALS: PULSE 111; TEMP 97.6
--- NOTE | 2025-05-12 10:46 | Physician Documentation ---
History of Present Illness ~ Chief Complaint: Wound Stated Complaint: LEG WOUND Time Seen by MD: 10:46 Primary Medical Doctor: MD Govea HPI 44-year-old male, homeless, polysubstance abuse, presenting with a wound to his right leg, and body pain He tells me that about 2 months ago he was bitten by a snake, right lateral ankle. He has a wound there. It does drain sometimes. There was redness and swelling around it. He denies any significant pain. He woke up this morning and says that his body hurt. He says that all of his bones hurt. He says I was paralyzed, and says he was not able to walk due to the pain. He did smoke some crystal meth, which helped a little bit. No definite fevers or chills. No viral type symptoms. No shortness of breath or cough. No other associated concerns. He reports a history of anaphylaxis to ceftriaxone Tetanus within 5 years?: Yes Medication Reconciliation Allergies: Coded Allergies: ceftriaxone (Verified Allergy, Unknown, 05/12/25) Scheduled Sulfamethoxazole/Trimethoprim (Bactrim Ds Tablet), 1 TAB PO Q12H Miscellaneous Medications Home Med List (No Home Medications), (Reported) Past Medical History Past Medical History: Deep Vein Thrombosis, Leukemia, *PSYCH*, Bipolar, Depression, Schizophrenia Past Surgical History: no surgical history Patient History: FH: alcohol abuse FATHER MOTHER Alcohol Use: Sober Drug Use: methamphetamine, heroin Lives In: Homeless Occupation: unemployed Past Social History: Sober from heroin for 2 months Review of Systems Constitutional: Reports: weakness; Denies: fever Musculoskeletal: Reports: pain Integumentary: Reports: wound(s) Physical Exam Vital Signs: Temperature: 97.6, Source: Oral, Heart Rate: 111, Respiratory Rate: 18, BP: 132/79, Pulse Oximetry: 100, Weight: 70.450 Oxygen Flow Rate: 0 Physical Exam General: This is a pleasant young man, appears disheveled, alert HEENT: Atraumatic, oropharynx is moist Heart: Tachycardic, appears regular Lungs: normal work of breathing, normal oxygen saturation on room air Extremities: Warm and well-perfused Right lower extremity: The patient has a discrete area of erythema, swelling and induration over the right lower leg and ankle. There is a central eschar covered lesion measuring approximately 5 cm in diameter. Mild tenderness and warmth. No drainage. Neuro: Alert and oriented. The patient appears to have generalized weakness although his exam is very limited due to reported pain, no focal extremity weakness Psychiatric: Calm and cooperative with exam Progress Results/Orders Results/Orders Orders - RIKKI JACOBSEN MD Culture Blood (05/12/25 10:50) Monitor (05/12/25 10:50) Oxygen (05/12/25 10:50) Saline Lock (05/12/25 10:50) Completed Orders - RIKKI JACOBSEN MD Cbc/Diff (05/12/25 10:50) Electrocardiogram (05/12/25 10:50) Procalcitonin (05/12/25 10:50) BMP (05/12/25 10:50) Lacticsepsis (05/12/25 10:50) Ketorolac Trometh 15mg/Ml Vial (Toradol (05/12/25 11:00) Normal Saline 1000ml (0.9% Sodium Chlori (05/12/25 11:00) Man Diff (05/12/25 11:02) Pathology Review (05/12/25 11:02) Sulfamethox/Trimetho. Ds Tab (Septra Ds (05/12/25 12:00) Medications Received in ER Medications (Trade) Dose Ordered Sig/Adriane Route PRN Reason Start Time Stop Time Status Last Admin Dose Admin (Septra DS tab) 1 tab ONCE ONCE PO 05/12/25 12:00 05/12/25 12:01 DC 05/12/25 12:12 1 TAB Vital Signs 05/12/25 05/12/25 05/12/25 10:35 11:23 12:17 Temp 97.6 Pulse 111 Resp 18 12 B/P (MAP) 132/79 117/78 Pulse Ox 100 100 O2 Flow Rate 0 Laboratory Tests Test 05/12/25 11:02 White Blood Count 2.3 L Red Blood Count 4.04 L Hemoglobin 11.3 L Hematocrit 33.5 L Mean Corpuscular Volume 82.9 Mean Corpuscular Hemoglobin 27.9 Mean Corpuscular Hemoglobin Concent 33.7 Red Cell Distribution Width 13.8 Platelet Count 343 Mean Platelet Volume 6.8 L Neutrophils (%) (Auto) 26.0 L Lymphocytes (%) (Auto) 38.9 Monocytes (%) (Auto) 34.5 H Eosinophils (%) (Auto) 0.4 Basophils (%) (Auto) 0.2 Neutrophils # (Auto) 0.6 L Lymphocytes # (Auto) 0.9 L Monocytes # (Auto) 0.8 Eosinophils # (Auto) 0.0 Basophils # (Auto) 0.0 CBC Comment Differential Total Cells Counted 100 Neutrophils % (Manual) 30.0 L Lymphocytes % (Manual) 31.0 Monocytes % (Manual) 36.0 H Eosinophils % (Manual) 3.0 Platelet Estimate Normal Red Blood Cell Morphology Normal Basophilic Stippling Hematology Pathologist Comment Sodium Level 134 L Potassium Level 3.8 Chloride Level 97 L Carbon Dioxide Level 28.8 Anion Gap 8 Blood Urea Nitrogen 11 Creatinine 0.80 Estimated GFR/1.73 m2 > 90 BUN/Creatinine Ratio 13.8 Glucose Level 117 H Lactic Acid Level 0.7 Calcium Level 8.3 L Albumin 2.4 L Procalcitonin 0.50 Chemistry Comments Microbiology Date/Time Source Procedure Growth Status 05/12/25 11:07 Blood Arm Left Blood Culture - Preliminary NEGATIVE (LESS THAN 24 HOURS) Resulted Medical Decision Making Additional information obtaine: N/A Findings na Differential Dx:Considerations: Include: Abscess, Cellulitis, Healing wound Additional Comment The patient presents with a wound on his leg, as well as reported body aches. Here in the ED he is afebrile. He does have findings concerning for cellulitis to his wound on his leg. He is tachycardic, but also reports using methamphetamines today. No other specific infectious symptoms or concerns. He has no focal weakness on exam although his exam is limited due to poor effort from pain. He was given IV fluids and Toradol. Labs are grossly unremarkable. Following this he felt much improved and was able to easily walk. He will be discharged on Bactrim for his wound. No evidence of sepsis or more dangerous process. Return precautions given Departure Time of Disposition: 11:58 Disposition: 01 HOME / SELF CARE / HOMELESS Impression: Primary Impression: Cellulitis of right lower extremity Additional Impression: Generalized body aches Condition: Improved Discharge Instructions: Cellulitis, Adult Referrals: NO PRIMARY CARE PROVIDER (PCP) Prescriptions Sulfamethoxazole/Trimethoprim (Bactrim Ds Tablet) 800 Mg-160 Mg Tablet 1 TAB PO Q12H for 10 Days, #20 TAB Prov: RIKKI JACOBSEN MD 05/12/25 Education Educated: Patient Educated regarding: diagnosis, treatment, need for follow up Signature Scribe Signature: na Attestation: RIKKI Spaulding MD May 12, 2025 10:46
--- NOTE | 2025-05-12 11:08 | ELECTROCARDIOGRAPH REPORT ---
[facility] Test Date: 2025-05-12 Test Time: 11:04:19 Pat Name: KARISSA GRIER Department: [facility] Patient ID: [id number] Room: Gender: M [employer] Restaurant Manager: : 1980 Requested By: RIKKI JACOBSEN Order Number: [id number] Reading MD: Dr. RUSSELL English Measurements Intervals [place] Rate: 117 P: 0 [place]: 0 QRS: 76 QRSD: 99 T: 36 QT: 354 QTc: 494 Interpretive Statements Normal sinus rhythm.rline T wave abnormalities Borderline prolonged QT interval Electronically Signed On 05-12-2025 19:17:[address] RUSSELL English Please click the below link to view image of tracing.
[2025-05-12 11:15] LABS: MEAN PLATELET VOLUME 6.8 FL (7.4-10.4); RED CELL DISTRIBUTION WIDTH 13.8 % (11.5-14.5)
[2025-05-12] MEDS: ketorolac trometh 15mg/ml vial 15 MG/ML ML IV ONE (11:18)
[2025-05-12] MEDS: normal saline 1000ml 1,000 ML IV ONE (11:22)
[2025-05-12 11:24] LABS: CREATININE 0.80 MG/DL (0.60-1.10); TOTAL CARBON DIOXIDE 28.8 MMOL/L (24-32); eCRCL 117 ML/MIN; eGFR > 90 ML/MIN
[2025-05-12 11:36] LABS: EOSINOPHILS % (MANUAL) 3.0 % (0-6); LYMPHOCYTES % (MANUAL) 31.0 % (21-51); MONOCYTES % (MANUAL) 36.0 % (2-12); NEUTROPHILS % (MANUAL) 30.0 % (42-75); PLATELET ESTIMATE NORMAL
[2025-05-12] MEDS ORDERED: SULF1TAB49 PO (11:58)
[2025-05-12] MEDS: sulfamethoxazole/trimethoprim DS (800/160mg) tablet PO ONE (12:12)
[2025-05-12 12:17] VITALS: BP 117/78; RESP 12; O2SAT 100
== END 2025-05-12 12:19 | disposition home or self-care (01) ==
LOC: ER 10:30
DX: L03.115 Cellulitis of right lower limb (principal); F20.9 Schizophrenia, unspecified; F31.9 Bipolar disorder, unspecified; F15.90 Other stimulant use, unspecified, uncomplicated; F10.90 Alcohol use, unspecified, uncomplicated; Z87.891 Personal history of nicotine dependence; Z88.1 Allergy status to other antibiotic agents; Z79.899 Other long term (current) drug therapy; Y90.9 Presence of alcohol in blood, level not specified
CPT/HCPCS: 36415; 80048; 83605; 84145; 85025; 87040; 93005; 99284; J7030; 85007